=== PATIENT | female | born 1950 | race Caucasian/White ===

== ENCOUNTER 2019-01-26 10:39 | Emergency (ER) | payer MEDICARE, OTHER ==
[~2019-01-26] VITALS: Ht 167.6 cm; Wt 124.7 kg
[~2019-01-26 10:39] MED LIST: AMIT50 PO; AMITRIPTYLINE PO; BACL20 PO; CELE200 PO; FOLI1 PO; GABA300 PO; INTE30I SC; KRILL OIL PO; LOSARTAN POTAS100 MG PO; MODA200 PO; OMEP20ER PO; SIMV10 PO; TECFIDERA240 MG PO; TRAM50 PO; TRAVER2180 PO; VITAMIN E PO; WOMENS MULTI VITAMIN PO
[2019-01-26] MEDS ORDERED: BACI500TO TOP (11:57)
== END 2019-01-26 13:13 | disposition home or self-care (01) ==
LOC: ER 10:39
DX: T23.202A Burn of second degree of left hand, unspecified site, initial encounter (principal); T23.201A Burn of second degree of right hand, unspecified site, initial encounter; T31.22 Burns involving 20-29% of body surface with 20-29% third degree burns; G35 Multiple sclerosis; Z88.0 Allergy status to penicillin; Z88.5 Allergy status to narcotic agent; Z88.7 Allergy status to serum and vaccine; Z88.1 Allergy status to other antibiotic agents; Z79.899 Other long term (current) drug therapy; X15.0XXA Contact with hot stove (kitchen), initial encounter; Y92.009 Unspecified place in unspecified non-institutional (private) residence as the place of occurrence of the external cause
CPT/HCPCS: 99283

== ENCOUNTER 2022-01-28 13:10 | Day surgery (SDC) | payer MEDICARE, OTHER ==
[~2022-01-28 13:10] MED LIST changes: +BACI500TO TOP; +LISI20 PO
== END 2022-01-28 16:42 | disposition home or self-care (01) ==
LOC: ATC 13:10
DX: H53.2 Diplopia (principal); H52.51 Internal ophthalmoplegia (complete) (total); Z99.3 Dependence on wheelchair
CPT/HCPCS: J2930

== ENCOUNTER 2022-01-29 01:14 | Day surgery (SDC) | payer MEDICARE, OTHER | END 2022-01-29 16:46 | disposition home or self-care (01) | LOC: ATC 01:14 | DX: H51.20 Internuclear ophthalmoplegia, unspecified eye (principal); H53.2 Diplopia | CPT/HCPCS: J2930 ==

== ENCOUNTER 2022-01-30 00:10 | Day surgery (SDC) | payer MEDICARE, OTHER | END 2022-01-30 16:40 | disposition home or self-care (01) | LOC: ATC 00:10 | DX: H51.20 Internuclear ophthalmoplegia, unspecified eye (principal); H53.2 Diplopia; Z88.0 Allergy status to penicillin; Z88.1 Allergy status to other antibiotic agents; Z88.7 Allergy status to serum and vaccine; Z88.5 Allergy status to narcotic agent; Z79.899 Other long term (current) drug therapy | CPT/HCPCS: 96365; J2930 ==

== ENCOUNTER 2022-01-31 00:12 | Day surgery (SDC) | payer MEDICARE, OTHER | END 2022-01-31 16:46 | disposition home or self-care (01) | LOC: ATC 00:12 | DX: H51.20 Internuclear ophthalmoplegia, unspecified eye (principal); H53.2 Diplopia; G35 Multiple sclerosis; Z88.0 Allergy status to penicillin; Z88.1 Allergy status to other antibiotic agents; Z88.5 Allergy status to narcotic agent; Z88.7 Allergy status to serum and vaccine; Z88.6 Allergy status to analgesic agent; Z96.652 Presence of left artificial knee joint | CPT/HCPCS: J2930 ==

== ENCOUNTER 2022-02-01 01:45 | Day surgery (SDC) | payer MEDICARE, OTHER | END 2022-02-01 10:30 | disposition home or self-care (01) | LOC: ATC 01:45 | DX: H51.20 Internuclear ophthalmoplegia, unspecified eye (principal); H53.2 Diplopia | CPT/HCPCS: J2930 ==

== ENCOUNTER 2022-02-04 18:18 | Inpatient (IN) | payer MEDICARE, OTHER ==
[~2022-02-04] VITALS: Ht 167.6 cm; Wt 122.9 kg
[~2022-02-04 18:18] MED LIST changes: -AMIT50 PO; +AMITRIPTYLINE100 M2 PO
[2022-02-04 19:12] LABS: BASOPHILS ABSOLUTE AUTO 0.06 K/mm3 (0.00-0.23); BASOPHILS PERCENT AUTO 0 % (0-2); EOSINOPHILS PERCENT AUTO 0 % (0-6); Hematocrit 50.9 % (33.0-51.0); Hemoglobin 16.4 g/dL (11.5-16.0); IMMATURE GRAN PERCENT AUTO 1 % (0-1); LYMPHOCYTES ABSOLUTE AUTO 1.33 K/mm3 (0.84-5.20); LYMPHOCYTES PERCENT AUTO 5 % (21-46); MONOCYTES ABSOLUTE AUTO 2.49 K/mm3 (0.16-1.47); MONOCYTES PERCENT AUTO 9 % (4-13); Mean Corpuscular HGB 30.2 pg (26.0-34.0); Mean Corpuscular HGB Conc 32.2 g/dL (31.5-36.5); Mean Corpuscular Volume 94 fL (80-100); Mean Platelet Volume 10.8 fL (9.1-12.4); NEUTROPHILS ABSOLUTE AUTO 23.73 K/mm3 (1.96-9.15); NEUTROPHILS PERCENT AUTO 85 % (41-73); Platelet Count 320 K/mm3 (150-400); RDW Coefficient Variation 13.4 % (11.7-14.2); RDW Standard Deviation 46.6 fL (35.1-46.3); Red Blood Cell Count 5.43 M/mm3 (3.80-5.20); White Blood Cell Count 27.91 K/mm3 (4.00-11.30)
[2022-02-04 19:28] LABS: Alanine Aminotransfer (ALT/SGP 132 U/L (12-78); Albumin, Blood 2.7 g/dL (3.4-5.0); Albumin/Globulin Ratio 0.6 (0.8-1.8); Alk Phos 77 U/L (50-136); Anion Gap 10 mmol/L (6-16); Aspartate Aminotrans (AST/SGOT 229 U/L (12-37); Bilirubin, Total 1.4 mg/dL (0.1-1.0); Blood Urea Nitrogen 47 mg/dL (8-24); CO2, Blood 25 mmol/L (21-32); Chloride, Blood 107 mmol/L (98-108); Creatinine, Blood 0.89 mg/dL (0.40-1.00); Globulin, Blood 4.7 g/dL (2.2-4.0); Glomerular Filtration Rate >60 (60-); Glucose, Blood 148 mg/dL (70-99); Potassium, Blood 3.7 mmol/L (3.5-5.5); Sodium, Blood 142 mmol/L (136-145); Total Protein, Blood 7.4 g/dL (6.4-8.2)
[2022-02-04 19:54] LABS: CPK Creatine Kinase 4405 U/L (26-193)
[2022-02-04 20:11] LABS: Creatine Kinase MB 67.2 ng/mL (0.0-3.6); Creatine Kinase MB Index 1.5 (0.0-4.0)
[2022-02-04 20:28] LABS: Source, Urine Foley catheter
[2022-02-04 20:37] LABS: Appearance, Urine Clear (Clear); Bilirubin, Urine Neg (Neg); Blood, Urine 4+ (Neg); Color, Urine Amber (P-Yellow); Glucose Qualitative, Urine Neg (Neg); Ketones, Urine 1+ (Neg); Leukocyte Esterase, Urine Neg (Neg); Nitrite, Urine Neg (Neg); Protein, Urine 2+ (Neg); Specific Gravity, Urine 1.025 (1.003-1.022); Urobilinogen, Urine 1+ (Normal)
[2022-02-04 20:48] LABS: Bacteria Few /hpf; Squamous Epithelial Cells Few /hpf (Few)
[2022-02-04 20:50] LABS: Transitional Epithelial Cells Rare /hpf (0-Rare)
[2022-02-04] MEDS ORDERED: MYRBETRIQ50 MG PO (23:02)
--- NOTE | 2022-02-04 23:46 | NUR ---
ADMIT PT ARRIVED TO 303 @2315, 3 PER SLIDE TRANSFER TO BED. DX c RHABDOMYLOSIS, WAS FOUND DOWN @HOME FOR ROUGHLY 24HRS. ORIENTED TO & CALL LIGHT. WCTM.
--- NOTE | 2022-02-05 05:03 | NUR ---
SHIFT SUMMARY AOX4. VSS. ADMITTED LAST NIGHT FOR RHABDOMYLOSIS. REPORTS 8/10 ACHY PAIN ALLOVER BODY, MEDICATED 1X c TYLENOL & PT ABLE TO REST WELL. UNABLE TO RAISE L LEG & HAS N/T SENSATION STATES THIS IS NOT NEW R/T HX MS. BLE EDEMATOUS. UNABLE TO RAISE L ARM, REPORTS THIS IS NEW SINCE FALL, CAN STILL WIGGLE FINGERS ON L HAND & BACKUP OPERATOR. R ARM & HAND IS EDEMATOUS c SCATTERED ABRASIONS & LARGE BLISTERS. SOME BLISTERS ARE LEAKING SEROUS DRAINAGE, CLEANSED, APPLIED NONADHERENT & ABD PAD. PT HAS LARGE WOUND ON BACK OF NECK, CLEANSED & APPLIED NONADHERENT PAD. SKIN TEAR R SCAPULA, CLEANSED, APPLIED NONADHERENT PAD. PICS TAKEN & PLACED IN CHART. MCDONOUGH PATENT & DRAINING CLEAR SHERLYN URINE. PT W/C BOUND @BASELINE & LIVES ALONE, BEDREST @THIS TIME. CALL LIGHT IN REACH. WCTM.
[2022-02-05 05:17] LABS: Hemoglobin 16.1 g/dL (11.5-16.0); Mean Corpuscular HGB 30.4 pg (26.0-34.0); Mean Corpuscular HGB Conc 32.9 g/dL (31.5-36.5); Mean Corpuscular Volume 93 fL (80-100); Mean Platelet Volume 10.7 fL (9.1-12.4); Platelet Count 168 K/mm3 (150-400); RDW Coefficient Variation 13.5 % (11.7-14.2); RDW Standard Deviation 45.9 fL (35.1-46.3)
[2022-02-05 05:36] LABS: Alanine Aminotransfer (ALT/SGP 127 U/L (12-78); Albumin, Blood 2.2 g/dL (3.4-5.0); Albumin/Globulin Ratio 0.6 (0.8-1.8); Alk Phos 65 U/L (50-136); Anion Gap 10 mmol/L (6-16); Aspartate Aminotrans (AST/SGOT 252 U/L (12-37); Bilirubin, Total 1.2 mg/dL (0.1-1.0); Blood Urea Nitrogen 45 mg/dL (8-24); Bun/Creatinine Ratio 57.5 (12.0-20.0); CO2, Blood 25 mmol/L (21-32); Calcium, Blood 8.6 mg/dL (8.5-10.1); Chloride, Blood 111 mmol/L (98-108); Creatinine, Blood 0.78 mg/dL (0.40-1.00); Globulin, Blood 3.9 g/dL (2.2-4.0); Glomerular Filtration Rate >60 (60-); Glucose, Blood 116 mg/dL (70-99); Potassium, Blood 3.7 mmol/L (3.5-5.5); Sodium, Blood 146 mmol/L (136-145); Total Protein, Blood 6.1 g/dL (6.4-8.2)
[2022-02-05 05:51] LABS: BASOPHILS PERCENT MAN 0 % (0-2); EOSINOPHILS ABSOLUTE MAN 0.23 K/mm3 (0.00-0.68); EOSINOPHILS PERCENT MAN 1 % (0-6); LYMPHOCYTES ABSOLUTE MAN 0.71 K/mm3 (0.84-5.20); LYMPHOCYTES PERCENT MAN 3 % (21-46); MONOCYTES ABSOLUTE MAN 2.14 K/mm3 (0.16-1.47); MONOCYTES PERCENT MAN 9 % (4-13); SEG NEUTROPHILS PERCENT MAN 87 % (41-73); TOTAL CELLS COUNTED 100
--- NOTE | 2022-02-05 18:32 | NUR ---
SHIFT SUMMARY: NO ACUTE EVENTS. C/O GENERALIZED PAIN FROM SOFT TISSUE INJURIES; MEDICATED WITH TYLENOL WITH ADEQUATE RELIEF. WOUND CARE CONSULT COMPLETED AND ORDERS PLACED. MCDONOUGH DRAINING ADEQUATE ORANGE URINE. L ARM ALMOST FLACCID IS LLE. ABD U/S DONE, MRI HEAD WILL BE DONE IN A.M. TOLERATING PO INTAKE, DRINKING LOTS OF WATER. SISTER VISITED THIS AFTERNOON.
--- NOTE | 2022-02-06 04:20 | NUR ---
FEVER: PATIENT SCORED A 4 ON VIEWS FOR TACYCARDIA, TEMP. 101.1 AND HIGH RESPIRATIONS. TYLENOL WAS GIVEN WITH POOR EFFECT. TEMP. 101.[address] SEALS WAS NOTIFIED AND REPEAT DOSE OF TYLENOL WAS ORDERED WITH SEPSIS WORK UP.
[2022-02-06 04:41] LABS: Hematocrit 42.1 % (33.0-51.0); Hemoglobin 13.5 g/dL (11.5-16.0); Mean Corpuscular HGB 30.3 pg (26.0-34.0); Mean Corpuscular HGB Conc 32.1 g/dL (31.5-36.5); Mean Corpuscular Volume 95 fL (80-100); Mean Platelet Volume 10.6 fL (9.1-12.4); Platelet Count 222 K/mm3 (150-400); RDW Coefficient Variation 13.8 % (11.7-14.2); RDW Standard Deviation 48.3 fL (35.1-46.3); Red Blood Cell Count 4.45 M/mm3 (3.80-5.20); White Blood Cell Count 23.28 K/mm3 (4.00-11.30)
[2022-02-06 05:18] LABS: Alanine Aminotransfer (ALT/SGP 109 U/L (12-78); Albumin, Blood 1.7 g/dL (3.4-5.0); Albumin/Globulin Ratio 0.4 (0.8-1.8); Alk Phos 65 U/L (50-136); Anion Gap 7 mmol/L (6-16); Aspartate Aminotrans (AST/SGOT 164 U/L (12-37); Blood Urea Nitrogen 28 mg/dL (8-24); Bun/Creatinine Ratio 43.4 (12.0-20.0); CHOL/HDL RATIO 3.1; CO2, Blood 26 mmol/L (21-32); Calcium, Blood 7.7 mg/dL (8.5-10.1); Chloride, Blood 105 mmol/L (98-108); Cholesterol 132 mg/dL (50-200); Creatinine, Blood 0.65 mg/dL (0.40-1.00); Globulin, Blood 3.9 g/dL (2.2-4.0); Glomerular Filtration Rate >60 (60-); Glucose, Blood 145 mg/dL (70-99); HDL Cholesterol 42 mg/dL (>39); LDL/HDL RATIO 1.4; Low Density Lipoprotein Chol 59 mg/dL (0-110); Sodium, Blood 138 mmol/L (136-145); Thyroid Stimulating Hormone 0.778 uIU/mL (0.360-4.800); Total Protein, Blood 5.6 g/dL (6.4-8.2); Triglycerides 154 mg/dL (30-160); Very Low Density Lipoprot Chol 30 mg/dL (6-32)
[2022-02-06 05:48] LABS: CPK Creatine Kinase 2051 U/L (26-193); Creatine Kinase MB 6.4 ng/mL (0.0-3.6); Creatine Kinase MB Index 0.3 (0.0-4.0)
--- NOTE | 2022-02-06 06:11 | NUR ---
SHIFT SUMMARY: RECHECK ON TEMP. AFTER SECOND DOSE OF TYLENOL WAS 101.4. LACTIC ACID WAS 1.5, PROLACTIN WAS 0.35, WBC 23.28, BLOOD CX ARE PENDING. PATIENT WILL HAVE CXR AND MRI TODAY. CEASAR IS PATENT FOR CLEAR SHERLYN URINE, 700 MLS OUT THIS SHIFT.
--- NOTE | 2022-02-06 17:55 | NUR ---
SHIFT SUMMARY: SLIGHTLY FEBRILE AT START OF SHIFT; TYLENOL GIVEN AND IV ABX STARTED. L ARM WEAKNESS SLIGHTLY IMPROVED. MRI HEAD UNABLE TO BE DONE D/T PT'S BODY HABITUS. DRESSING CHANGES DONE. APPEARS VERY FATIGUED. MCDONOUGH DRAINING ORANGE URINE. ON ROOM AIR. WILL BE MOVED TO ROOM WITH A CEILING LIFT AT SHIFT CHANGE.
[2022-02-07 04:47] LABS: Hematocrit 41.1 % (33.0-51.0); Hemoglobin 13.4 g/dL (11.5-16.0); Mean Corpuscular HGB 30.4 pg (26.0-34.0); Mean Corpuscular HGB Conc 32.6 g/dL (31.5-36.5); Mean Corpuscular Volume 93 fL (80-100); Mean Platelet Volume 10.3 fL (9.1-12.4); Platelet Count 240 K/mm3 (150-400); RDW Coefficient Variation 13.8 % (11.7-14.2); RDW Standard Deviation 47.4 fL (35.1-46.3); Red Blood Cell Count 4.41 M/mm3 (3.80-5.20); White Blood Cell Count 16.47 K/mm3 (4.00-11.30)
[2022-02-07 05:14] LABS: Creatine Kinase MB 5.5 ng/mL (0.0-3.6)
[2022-02-07 05:32] LABS: Alanine Aminotransfer (ALT/SGP 119 U/L (12-78); Albumin, Blood 1.8 g/dL (3.4-5.0); Albumin/Globulin Ratio 0.4 (0.8-1.8); Alk Phos 71 U/L (50-136); Anion Gap 5 mmol/L (6-16); Aspartate Aminotrans (AST/SGOT 154 U/L (12-37); Bilirubin, Total 0.9 mg/dL (0.1-1.0); Blood Urea Nitrogen 33 mg/dL (8-24); Bun/Creatinine Ratio 47.6 (12.0-20.0); CO2, Blood 31 mmol/L (21-32); CPK Creatine Kinase 1868 U/L (26-193); Calcium, Blood 8.1 mg/dL (8.5-10.1); Chloride, Blood 103 mmol/L (98-108); Creatine Kinase MB Index 0.3 (0.0-4.0); Creatinine, Blood 0.69 mg/dL (0.40-1.00); Glomerular Filtration Rate >60 (60-); Glucose, Blood 112 mg/dL (70-99); Potassium, Blood 3.8 mmol/L (3.5-5.5); Sodium, Blood 139 mmol/L (136-145); Total Protein, Blood 5.8 g/dL (6.4-8.2)
--- NOTE | 2022-02-07 18:18 | NUR ---
SHIFT SUMMARY THE PATIENT IS ALERT AND ORIENTED X2 THIS SHIFT. PLEASANT AND COOPERATIVE WITH CARE. THE PATIENT HAS BEEN HALLUCINATING THIS SHIFT. MD IS AWARE. FAMILY AT BEDSIDE MOST OF THIS SHIFT. WOUND CARE DONE THIS SHIFT. SPEECH THERAPY WILL BE BY TOMORROW FOR EVAL. PATIENT WORKED WITH PHYSICAL THERAPY AND OCCUPATIONAL THERAPY THIS SHIFT. CALL LIGHT WITHIN REACH. NOTHING FURTHER TO REPORT.
--- NOTE | 2022-02-08 03:53 | NUR ---
Patient alert, actively talking outloud to the wall. She has not slept during this shift. Sleeping meds given per order. Concern raise per daughter. Call light within reach. We will continue to monitor until report given to the oncoming nurse.
[2022-02-08 12:49] LABS: Anion Gap 6 mmol/L (6-16); Blood Urea Nitrogen 13 mg/dL (8-24); Bun/Creatinine Ratio 26.6 (12.0-20.0); CO2, Blood 29 mmol/L (21-32); Chloride, Blood 106 mmol/L (98-108); Creatinine, Blood 0.49 mg/dL (0.40-1.00); Glomerular Filtration Rate >60 (60-); Glucose, Blood 141 mg/dL (70-99); Potassium, Blood 3.6 mmol/L (3.5-5.5); Sodium, Blood 141 mmol/L (136-145)
--- NOTE | 2022-02-08 17:00 | NUR ---
SHIFT SUMMARY THE PATIENT IS A/O X2, PLEASANT AND COOPERATIVE WITH CARE. THE PATIENT IS ON RA. NO TELE. MCDONOUGH DRAINING TO GRAVITY. THE PATIENT HAS BEEN HALLUCINATING THIS SHIFT. THE PATIENT WAS SWITCHED TO A PUREE DIET. THE PATIENT HAS STILL NOT SLEPT IN THE LAST 2 DAYS. SEROQUEL GIVEN THIS SHIFT. THE PATIENT BECAME LESS FIDGETY BUT STILL HAS NOT SLEPT ANY THIS SHIFT. DRESSINGS CHANGED THIS SHIFT. FAMILY AT BEDSIDE. CALL LIGHT WITHIN REACH. BED ALARM ON. BED IN LOWEST POSITION.
[2022-02-09 05:09] LABS: Hematocrit 39.8 % (33.0-51.0); Hemoglobin 12.6 g/dL (11.5-16.0); Mean Corpuscular HGB 30.1 pg (26.0-34.0); Mean Corpuscular HGB Conc 31.7 g/dL (31.5-36.5); Mean Corpuscular Volume 95 fL (80-100); Mean Platelet Volume 10.4 fL (9.1-12.4); Platelet Count 224 K/mm3 (150-400); RDW Standard Deviation 48.7 fL (35.1-46.3); Red Blood Cell Count 4.19 M/mm3 (3.80-5.20); White Blood Cell Count 11.71 K/mm3 (4.00-11.30)
[2022-02-09 05:47] LABS: Anion Gap 9 mmol/L (6-16); Blood Urea Nitrogen 11 mg/dL (8-24); Bun/Creatinine Ratio 21.9 (12.0-20.0); CO2, Blood 25 mmol/L (21-32); Chloride, Blood 106 mmol/L (98-108); Glomerular Filtration Rate >60 (60-); Glucose, Blood 124 mg/dL (70-99); Potassium, Blood 3.8 mmol/L (3.5-5.5); Sodium, Blood 140 mmol/L (136-145)
--- NOTE | 2022-02-09 07:37 | NUR ---
SHIFT SUMMARY PT CONFUSED AND HALLUCINATING ALL SHIFT , SHE DID NOT SLEEP ANY THIS SHIFT AND WAS VERY RESTLESS AND DR. SEALS WAS MADE AWARE AT 0530 AND NO ORDERS WERE RECEIVED, TURNEDPT Q 2 HRS AND FREQUENT ORAL CARE DONE, MCDONOUGH CATHETER P/D SHERLYN URINE, MULTIPLE DRSGS INTACT TO WOUNDS ON BUTTOCK, RT. FOREARM, LT. HEELAND BACK. NECK DRSG HAD LARGE AMT SEROSANGUINOUS DRAINAGE AND WAS CHANGED AT 0605 THIS AM AND PT TOLERATED WELL,LLE RED AND ALL EXTREMITIES KEPT ELEVATED THIS SHIFT, NO ACUTE DISTRESS THIS SHIFT.
--- NOTE | 2022-02-09 17:12 | NUR ---
SHIFT SUMMARY THE PATIENT IS ALERT AND ORIENTED X2 SELF AND FAMILY. THE PATIENT HAS BEEN PLEASANT AND COOPERATIVE WITH REORIENTATION. THE PATIENT CONTINUES TO HALLUCINATE THIS SHIFT. MD AWARE. DRESSINGS CHANGED THIS SHIFT. VERY LITTLE PO INTAKE THIS SHIFT. NEW 22G IV PUT IN LEFT FOREARM THIS SHIFT. FAMILY AT BEDSIDE. BED IN LOWEST POSITION, CALL LIGHT WITHIN REACH.
[2022-02-10 04:55] LABS: Anion Gap 8 mmol/L (6-16); Blood Urea Nitrogen 8 mg/dL (8-24); Bun/Creatinine Ratio 14.5 (12.0-20.0); CO2, Blood 28 mmol/L (21-32); Calcium, Blood 8.1 mg/dL (8.5-10.1); Chloride, Blood 106 mmol/L (98-108); Creatinine, Blood 0.55 mg/dL (0.40-1.00); Glomerular Filtration Rate >60 (60-); Glucose, Blood 105 mg/dL (70-99); Potassium, Blood 3.7 mmol/L (3.5-5.5); Sodium, Blood 142 mmol/L (136-145)
--- NOTE | 2022-02-10 06:23 | NUR ---
SHIFT SUMMARY PT ALERT TO PERSON, CONFUSED AND HALLUCINATING ALL SHIFT, PT DID NOT SLEEP ANY TONIGHT, LUNGS CTA, ABD LARGE AND ROUNDED, NO STOOLS THIS SHIFT, MCDONOUGH PATENT AND DRAINING SHERLYN URINE, PT HAS MULTIPLE WOUNDS CHARTED BUT NECK WOUND AND RT. BUTTOCK DRSGS WERE SATURATED WITH DRAINAGE AT 0340 AND BOTH WERE CHANGED, TURNED AND REPOSITIONED Q 2 HRS AND ORAL CARE DONE. NO ACUTE DISTRESS NOTED.
--- NOTE | 2022-02-10 19:50 | NUR ---
SHIFT NOTE. MS YO WAS VERY CONFUSED TODAY. SHE SEEMED TO BE HALLUCINATING, REACHING OUT FOR OBJECTS WITH HER ARM. ABLE TO FOLLOW SOME SIMPLE INSTRUCTIONS, FOR EXAMPLE, "OPEN YOUR MOUTH", "SUCK ON THE STRAW" TO ENCOURAGE ORAL INTAKE. POOR PO INTAKE, DR GOODRICH AWARE, NS IVF STARTED AND DIETARY CONSULT IN. MS YO HAS APPARANTLY NOT SLEPT FOR DAYS - AROUND 2PM I GAVE HER A ONE TIME DOSE OF IV ATIVAN AND SHE HAS BEEN RESTING SINCE. SHE RESPONDS WHEN WE TURN HER TO REPOSITION HER, BUT HAS BEEN MOSTLY SLEEPING SINCE THE ATIVAN DOSE. FAMILY AT BEDSIDE ALL DAY - HER DAUGHTER ADN THEN HER SISTER ALSO. EXTENSIVE WOUND DRESSING CHANGES AND CARE THIS MORNING. HER DAUGHTER HELD HER ON HER SIDE WHILE TWO NURSES REDRESSED THE WOUNDS. WOUNDS PHOTOGRAPHED TODAY AND PLACED IN THE CHART EXCEPT FOR 2 MEPILEX ON HER LEFT HIP THAT WERE CDI, LEFT UNDISTURBED. MOST EXUDATE FROM THE WOUND BEHIND HER NECK WHICH IS CONSISTANT WITH THE NIGHT REPORT. MCDONOUGH IN PLACE FOR WOUND CARE. UOP SHERLYN AND 375CC IN VOLUME (31CC/HR). TURNED AND REPOSITIONED Q2HRS, BED LOW, CALL LIGHT IN REACH, BED ALARM ON.
[2022-02-11 04:47] LABS: Hematocrit 38.2 % (33.0-51.0); Hemoglobin 11.9 g/dL (11.5-16.0); Mean Corpuscular HGB 29.8 pg (26.0-34.0); Mean Corpuscular HGB Conc 31.2 g/dL (31.5-36.5); Mean Corpuscular Volume 96 fL (80-100); Mean Platelet Volume 9.6 fL (9.1-12.4); Platelet Count 174 K/mm3 (150-400); RDW Coefficient Variation 13.8 % (11.7-14.2); RDW Standard Deviation 48.6 fL (35.1-46.3); White Blood Cell Count 7.35 K/mm3 (4.00-11.30)
[2022-02-11 05:04] LABS: Alanine Aminotransfer (ALT/SGP 67 U/L (12-78); Albumin, Blood 1.7 g/dL (3.4-5.0); Albumin/Globulin Ratio 0.4 (0.8-1.8); Alk Phos 73 U/L (50-136); Anion Gap 6 mmol/L (6-16); Aspartate Aminotrans (AST/SGOT 50 U/L (12-37); Bilirubin, Total 0.6 mg/dL (0.1-1.0); Blood Urea Nitrogen 7 mg/dL (8-24); Bun/Creatinine Ratio 13.9 (12.0-20.0); CO2, Blood 29 mmol/L (21-32); Calcium, Blood 7.6 mg/dL (8.5-10.1); Chloride, Blood 105 mmol/L (98-108); Glomerular Filtration Rate >60 (60-); Glucose, Blood 93 mg/dL (70-99); Potassium, Blood 3.5 mmol/L (3.5-5.5); Sodium, Blood 140 mmol/L (136-145); Total Protein, Blood 5.7 g/dL (6.4-8.2)
--- NOTE | 2022-02-11 05:39 | NUR ---
SHIFT SUMMARY: PT IS A/OX2-3. SHE DOES HAVE SOME INTERMITTENT CONFUSION ON WHERE SHE IS AT, BUT MORE ORIENTED THAN PREVIOUS SHIFTS. SHE DOES HAVE MULTIPLE WOUNDS THAT HAVE NEW DRESSINGS THAT ARE CDI. SHE DID TAKE HER MEDS WHOLE, ONE AT A TIME, AND WITH WATER. NO C/O OF PAIN, N/V, AND SEEMED TO GET SOME REST THIS SHIFT. MCDONOUGH CATH IS PATENT AND OUTPUT IS YELLOW/SHERLYN. FAMILY WILL BE AT BEDSIDE INTERMITTENTLY. WE'LL CONTINUE TO MONITOR THE REMAINER OF THE SHIFT.
--- NOTE | 2022-02-11 14:43 | NUR ---
MS SRINATH IS MUCH MORE TALKATIVE TODAY, SHE IS REACTING WELL WITH GOOD CONVERSATION WITH THE FAMILY AND STAFF. FOLLOWING SIMPLE DIRECTIONS WELL. NO HALLUCINATIONS NOTED. VOICE IS LOW AND A LITTLE MUMBLED, NOT ALWAYS EASY TO UNDERSTAND. SHE ATE 80% OF HER LUNCH, DRANK MOST OF THE ENSURE FROM HER BREAKFAST TRAY. TURNED AND REPOSITIONED. BED LOW, BED ALARM ON, CALL LIGHT IN REACH. HER SISTER IS AT HER BEDSIDE.
--- NOTE | 2022-02-11 15:32 | NUR ---
Spoke with Primary RN Callie and discussed case. Pt showing significant improvement today. Pt more alert today and received sleep after ativan dose. Pt resting in bed with her eyes closed upon arrival. Pt's sister and Pt's sister in law at bedside. Offered therapeutic listening as family express concerns regarding Pt living alone. Validated concerns and continued therapeutic listening. Gentle edcuation on the importance of having multiple plans for the future as disease process takes it's coarse. Offered potential suggestions. Family inquires about VA benefits. Family reports Pt's late was a . Deferred question for caremanager to address. Continued therapeutic listening. Family express appreciation and reports no other concerns at this time. Palliative Care will remain available.
--- NOTE | 2022-02-11 17:17 | NUR ---
SPOKE TO DR TEMPLE - FAMILY HAVE VOICED CONCERNS SEVERAL TIMES TODAY ABOUT THE POTENTIAL FOR PT TO NOT BE ABLE TO SLEEP AGAIN TONIGHT AND FOLLOWING NIGHTS. I CALLED DR TEMPLE TO LET HER KNOW ABOUT THE FAMILY'S CONCERNS. SHE SAID THAT SHE THEY HAD TALKED ABOUT IT EARLIER, AND THAT SHE IS PUTTING IN AN ORDER FOR ATIVAN PRN TO SLEEP. MS YO'S SISTER JUST LEFT FOR THE EVENING SO I CAN'T UPDAYE HER AT THIS TIME.
--- NOTE | 2022-02-11 18:55 | NUR ---
SHIFT NOTE - MS YO CONTINUES TO BE MORE ALERT TODAY THAN YESTERDAY. INTERMITTANT COMPREHENSIVE CONVERSATION MIXED WITH PT SPEAKING INCOHESIVELY AND SEEING HER IN THE ROOM (HE WAS NOT THERE). HER APPETITE IS MUCH IMPROVED. SHE ATE MOST OF THE MECHANICAL SOFT MEAL, BUT NO DESERT/HALF OF ENSURE. MULTIPLE DRESSING CHANGES DONE AND DOCUMENTED UNDER THE WOUND CARE TAB. IMPROVEMENT NOTED TO THE RIGHT ARM WOUND. TURNED AND REPOSITIONED Q2HRS. BED LOW. BED ALARM ON. CALL LIGHT IN REACH.
[2022-02-12 04:52] LABS: Hematocrit 38.1 % (33.0-51.0); Hemoglobin 12.1 g/dL (11.5-16.0); Mean Corpuscular HGB 30.2 pg (26.0-34.0); Mean Corpuscular HGB Conc 31.8 g/dL (31.5-36.5); Mean Corpuscular Volume 95 fL (80-100); Mean Platelet Volume 9.6 fL (9.1-12.4); Platelet Count 204 K/mm3 (150-400); RDW Coefficient Variation 13.9 % (11.7-14.2); RDW Standard Deviation 48.2 fL (35.1-46.3); Red Blood Cell Count 4.01 M/mm3 (3.80-5.20); White Blood Cell Count 8.13 K/mm3 (4.00-11.30)
[2022-02-12 05:11] LABS: Albumin, Blood 1.7 g/dL (3.4-5.0); Anion Gap 5 mmol/L (6-16); Blood Urea Nitrogen 7 mg/dL (8-24); Bun/Creatinine Ratio 13.8 (12.0-20.0); CO2, Blood 31 mmol/L (21-32); CPK Creatine Kinase 181 U/L (26-193); Chloride, Blood 103 mmol/L (98-108); Creatinine, Blood 0.51 mg/dL (0.40-1.00); Glomerular Filtration Rate >60 (60-); Glucose, Blood 117 mg/dL (70-99); Phosphorus, Blood 2.6 mg/dL (2.5-4.9); Potassium, Blood 4.1 mmol/L (3.5-5.5); Sodium, Blood 139 mmol/L (136-145)
[2022-02-12 05:22] LABS: BASOPHILS PERCENT MAN 0 % (0-2); EOSINOPHILS ABSOLUTE MAN 0.08 K/mm3 (0.00-0.68); EOSINOPHILS PERCENT MAN 1 % (0-6); LYMPHOCYTES ABSOLUTE MAN 0.73 K/mm3 (0.84-5.20); LYMPHOCYTES PERCENT MAN 9 % (21-46); METAMYELOCYTE ABSOLUTE MAN 0.08 K/mm3 (0.00-0.00); METAMYELOCYTE PERCENT MAN 1 % (0-0); MONOCYTES ABSOLUTE MAN 0.56 K/mm3 (0.16-1.47); MONOCYTES PERCENT MAN 7 % (4-13); MYELOCYTE ABSOLUTE MAN 0.08 K/mm3 (0.00-0.00); MYELOCYTE PERCENT MAN 1 % (0-0); NEUTROPHILS ABSOLUTE MAN 6.58 K/mm3 (1.96-9.15); SEG NEUTROPHILS PERCENT MAN 81 % (41-73); TOTAL CELLS COUNTED 100
--- NOTE | 2022-02-12 05:55 | NUR ---
PT IS A/OX2. SHE HAD SOME INCOMPREHENSIBLE SPEECH THIS NOC SHIFT. HER MCDONOUGH IS PATENT AND OUTPUT IS MINIMAL. DRESSINGS TO NECK/BACK WERE CHANGED AND ARE CDI. XEROFORM, EXU DRY/ABD AND TAPE FOR THOSE DRESSINGS. SHE DID GET 1MG OF ATIVAN AND HAS BEEN SLEEPING VERY GOOD; FOR REPOSITIONING SHE IS AROUSABLE AND CAN ASSIST MINIMALLY. HER BED IS IN THE LOWEST POSITION AND ALARM IS SET. WE'LL CONTINUE TO MONITOR THE REMAINDER OF THE SHIFT.
--- NOTE | 2022-02-12 10:52 | NUR ---
dr burns to bedside. pt's sister in law here with pt. MS SRINATH IS BRIGHTER TODAY, COHERENT CONVERSATION, ORIENTATED X4. SAID SHE FEELS A LOT BETTER. TALKING ABOUT HER RELATIVES IF ALIVE, BUT OTHERWISE FAR LESS CONFUSED. SPEACH CLEAR. WOUND DRESSINGS REMOVED TO BACK OF NECK, LEFT BACK AND BUTTOCK TO SHOW DR BURNS, ALSO VIEWED PHOTOGRAPHS. BACK OF NECK WOUND IS MORE SWOLLEN AND REDDER AROUND THE WOUND THAN YESTERDAY. REDRESSED WITH XEROFORM/ABD PAD. SURGERY CONSULT ORDERED BY DR BURNS FOR POSSIBLE DEBRIDEMENT OF SACRAL WOUND.
--- NOTE | 2022-02-12 18:49 | NUR ---
SHIFT NOTE MS YO HAS BEEN NOTICABLY MORE COMMUNICATIVE THIS SHIFT. ALERT, SPEACH CLEAR, MOSTLY COMPREHENSIVE AND UNCONFUSED IN HER SPEACH, BUT WITH SOME INTERMTTANT CONFUSION. SEEN BY SURGEON, WOUND NOT SUITABLE FOR DEBRIEDMENT PER MD. SEEN BY WOUND CARE NURSE TODAY AND ORDERS FOR WOUND CARE IN THE CHART. MS YO WORKED WITH OT AND PT TODAY. FAMILY AT BEDSIDE THROUGHOUT A LOT OF THE SHIFT. WOUND TO BACK OF NECK LOOKS MORE SWOLLEN AROUND THE WOUND, REDRESSED TODAY. WOUND TO RIGHT FOREARM DRESSING CHANGED AT 1850 USING THE NEW WOUND CARE ORDERS. BED LOW. CALL LIGHT IN REACH. BED ALARM ON.
--- NOTE | 2022-02-13 06:44 | NUR ---
SHIFT SUMMARY: PT IS A/OX3-4 THIS NOC SHIFT. SHE WAS ABLE TO ANSWER WHO SHE WAS, PLACE, DATE AND TIME. SHE WAS COOPERATIVE WITH ALL CARE. THERE ARE NEW WOUNDCARE ORDERS IN THE ORDERS. THE PT WAS HAVING TROUBLE SLEEPING AND RECEIVED PRN ATIVAN, WHICH RESOLVED THE INSOMNIA. SHE IS SAFELY TAKING MEDICATIONS PO WITH SMALL SIPS OF WATER. NO OTHE ACUTE CHANGES THIS SHIFT. HER BED IS IN THE LOWEST POSITON AND CALL LIGHT IS WITHIN REACH. WE'LL CONTINUE TO MONITOR THE REMAINDER OF THE SHIFT.
--- NOTE | 2022-02-13 19:48 | NUR ---
SHIFT SUMMARY: PT A/O X 4 T/OUT THE DAY. SHE WAS ABLE TO TELL ME THE HER NAME, , DATE, EVENTS WHICH BROUGHT HER TO THE HOSPITAL AND WHERE SHE WAS AT. PT ABLE TO ASSIST WITH ROLL CHANGES. WOUND CARE COMPLETED TO ALL WOUNDS PER ORDERS. PT TOLERATED WELL. SHE WAS ABLE TO ASSIST WITH ROLL CHANGES. WE TX HER TO CHAIR AFTER LUNCH VIA AALIYAH. PT HAS BEEN EATING WELL. WERO MINOR REPORTED SHE SUPERVISED PT AND PT ABLE TO FEED SELF WITHOUT ANY CHOKING EPISODES OR OTHER CONCERNS. PT WAS PLEASANT AND COOPERATIVE WITH ALL CARES TODAY.
--- NOTE | 2022-02-14 00:01 | NUR ---
UP IN RECLINER AT BEDSIDE. REFUSED TO LET STAFF PUT HER TO BED. "IM FINE HERE, IM COMFORTABLE..." ALERT AND ORIENTED. CALL LIGHT IN REACH. CEASAR LE. WILL MONITOR. HOB AT 60 DEGREES OR SO. NO NOTED DISTRESS.
--- NOTE | 2022-02-14 04:26 | NUR ---
FOOD AND BEVERAGE LEAD SUMMARY REFUED TO LET STAFF PUT HER BACK IN BED AT HS FROM RECLINER AT BEDSIDE. STATED SHE WAS COMFORTABLE. HAS BEEN RSTING QUIETLY WITH NO NOTED S/S DISTRESS. CALL LIGHT IN REACH. CEASAR LE. WILL CONTINUE TO MONITOR
[2022-02-14] MEDS ORDERED: Promod946 ML PO (13:28)
[2022-02-14] MEDS ORDERED: HYDCHL25 PO (13:28)
[2022-02-14] MEDS ORDERED: SILVADENE TOP (13:29)
[2022-02-14] MEDS ORDERED: CALCIUM ALGINATE TOP (13:30)
[2022-02-14 14:14] LABS: Influenza A, PCR NEGATIVE (NEGATIVE); Influenza B, PCR NEGATIVE (NEGATIVE); Resp Syncytial Virus, PCR NEGATIVE (NEGATIVE); SARS-Cov-2 (COVID-19) PCR, MMC NEGATIVE (NEGATIVE)
[2022-02-14] MEDS ORDERED: Ativan1 MG PO (15:16)
--- NOTE | 2022-02-14 16:50 | NUR ---
DISCHARGE SUMMARY PATIENT DISCHARGED TO [facility]. REPORT CALLED TO FACILITY AND SPOKE TO RN. ALL QUESTIONS ANSWERED. DISCHARGE PAPERWORK AND ATIVAN HARD SCPRIT SENT WITH PATIENT. PATIENT'S DAUGHTER TOOK ALL PATIENT'S BELONGINGS. PATIENT TRANSPORTED VIA GURNEY TO FACILITY.
== END 2022-02-14 18:00 | DRG 871 ==
LOC: ER 18:18 → MEDS 18:19 → ENPENDDIS 02-14 12:27 → MEDS 02-14 18:00
PROVIDERS: Emergency Medicine; Family Medicine; Internal Medicine; ADMIT Internal Medicine
DX: A41.9 Sepsis, unspecified organism (principal); J18.9 Pneumonia, unspecified organism; G92.8 Other toxic encephalopathy; I21.9 Acute myocardial infarction, unspecified; M62.82 Rhabdomyolysis; Z68.42 Body mass index [BMI] 45.0-49.9, adult; G35 Multiple sclerosis; I11.0 Hypertensive heart disease with heart failure; E66.01 Morbid (severe) obesity due to excess calories; G47.00 Insomnia, unspecified; I10 Essential (primary) hypertension; Z66 Do not resuscitate; Z99.3 Dependence on wheelchair; L89.890 Pressure ulcer of other site, unstageable; Z98.890 Other specified postprocedural states; Z96.652 Presence of left artificial knee joint; Z88.0 Allergy status to penicillin; Z88.1 Allergy status to other antibiotic agents; Z88.5 Allergy status to narcotic agent; Z88.8 Allergy status to other drugs, medicaments and biological substances; Z91.018 Allergy to other foods; Z79.899 Other long term (current) drug therapy; W18.30XA Fall on same level, unspecified, initial encounter
CPT/HCPCS: 0241U; 36415; 51702; 70450; 71045; 72125; 73502; 73560-LT; 73560-RT; 76705; 80048; 80053; 80061; 80069; 81001; 82550; 82553; 83605; 84145; 84443; 85025; 85027; 87040; 90471; 90686; 90714; 92526; 92610; 93005; 93010; 96372; 96374; 97110; 97110-CO; 97110-CQ; 97162; 97166; 97530; 97530-CO; 97530-CQ; 97535; 97535-CO; 99285-25; A9270; G0008; G0378; J0696; J1650; J2060; J3010; J7030; J7120

== ENCOUNTER 2022-02-28 01:50 | Day surgery (SDC) | payer MEDICARE, OTHER ==
[~2022-02-28 01:50] MED LIST changes: +Ativan1 MG PO; +CALCIUM ALGINATE TOP; +HYDCHL25 PO; +MYRBETRIQ50 MG PO; +Promod946 ML PO; +SILVADENE TOP
== END 2022-02-28 23:37 | disposition home or self-care (01) ==
LOC: WOUND 01:50
DX: L89.324 Pressure ulcer of left buttock, stage 4 (principal); L89.890 Pressure ulcer of other site, unstageable; L89.120 Pressure ulcer of left upper back, unstageable; G35 Multiple sclerosis; L89.320 Pressure ulcer of left buttock, unstageable; R77.0 Abnormality of albumin; I73.9 Peripheral vascular disease, unspecified; I87.2 Venous insufficiency (chronic) (peripheral); G81.04 Flaccid hemiplegia affecting left nondominant side; L89.620 Pressure ulcer of left heel, unstageable; Z88.0 Allergy status to penicillin; Z88.1 Allergy status to other antibiotic agents; Z88.8 Allergy status to other drugs, medicaments and biological substances
CPT/HCPCS: A9270; G0463

== ENCOUNTER 2022-03-07 00:20 | Day surgery (SDC) | payer MEDICARE, OTHER | END 2022-03-07 23:17 | disposition home or self-care (01) | LOC: WOUND 00:20 | DX: L89.324 Pressure ulcer of left buttock, stage 4 (principal); L89.620 Pressure ulcer of left heel, unstageable; L89.890 Pressure ulcer of other site, unstageable; L89.113 Pressure ulcer of right upper back, stage 3; L89.120 Pressure ulcer of left upper back, unstageable; G35 Multiple sclerosis; R77.0 Abnormality of albumin; I73.9 Peripheral vascular disease, unspecified; I87.2 Venous insufficiency (chronic) (peripheral); G81.04 Flaccid hemiplegia affecting left nondominant side | CPT/HCPCS: A9270 ==

== ENCOUNTER 2022-03-14 02:29 | Day surgery (SDC) | payer MEDICARE, OTHER | END 2022-03-14 23:23 | disposition home or self-care (01) | LOC: WOUND 02:29 | DX: L89.894 Pressure ulcer of other site, stage 4 (principal); L89.324 Pressure ulcer of left buttock, stage 4; L89.890 Pressure ulcer of other site, unstageable; L89.620 Pressure ulcer of left heel, unstageable; G35 Multiple sclerosis; R77.0 Abnormality of albumin; I73.9 Peripheral vascular disease, unspecified; I87.2 Venous insufficiency (chronic) (peripheral); G81.04 Flaccid hemiplegia affecting left nondominant side ==

== ENCOUNTER 2022-03-21 00:55 | Day surgery (SDC) | payer MEDICARE, OTHER | END 2022-03-21 23:00 | disposition home or self-care (01) | LOC: WOUND 00:55 | DX: L89.324 Pressure ulcer of left buttock, stage 4 (principal); L89.620 Pressure ulcer of left heel, unstageable; L89.894 Pressure ulcer of other site, stage 4; G35 Multiple sclerosis; I87.2 Venous insufficiency (chronic) (peripheral); I73.9 Peripheral vascular disease, unspecified; G81.04 Flaccid hemiplegia affecting left nondominant side | CPT/HCPCS: G0463 ==

== ENCOUNTER 2022-04-18 01:04 | Day surgery (SDC) | payer MEDICARE, OTHER | END 2022-04-18 23:28 | disposition home or self-care (01) | LOC: WOUND 01:04 | DX: L89.324 Pressure ulcer of left buttock, stage 4 (principal); L89.120 Pressure ulcer of left upper back, unstageable; G35 Multiple sclerosis; I73.9 Peripheral vascular disease, unspecified; I87.2 Venous insufficiency (chronic) (peripheral); G81.04 Flaccid hemiplegia affecting left nondominant side; S31.119A Laceration without foreign body of abdominal wall, unspecified quadrant without penetration into peritoneal cavity, initial encounter; S71.012A Laceration without foreign body, left hip, initial encounter; S21.212A Laceration without foreign body of left back wall of thorax without penetration into thoracic cavity, initial encounter; Z91.81 History of falling | CPT/HCPCS: A9270; G0463 ==

== ENCOUNTER 2022-05-23 00:41 | Day surgery (SDC) | payer MEDICARE, OTHER | END 2022-05-23 23:05 | disposition home or self-care (01) | LOC: WOUND 00:41 | DX: L89.324 Pressure ulcer of left buttock, stage 4 (principal); G35 Multiple sclerosis; I73.9 Peripheral vascular disease, unspecified; I87.2 Venous insufficiency (chronic) (peripheral); G81.04 Flaccid hemiplegia affecting left nondominant side; R77.0 Abnormality of albumin; Z86.16 Personal history of COVID-19 | CPT/HCPCS: A9270 ==

== ENCOUNTER 2022-05-26 15:15 | Emergency (ER) | payer MEDICARE, OTHER ==
[~2022-05-26] VITALS: Ht 162.6 cm; Wt 208.7 kg
[2022-05-26 15:44] LABS: BASOPHILS ABSOLUTE AUTO 0.03 K/mm3 (0.00-0.23); BASOPHILS PERCENT AUTO 1 % (0-2); EOSINOPHILS ABSOLUTE AUTO 0.11 K/mm3 (0.00-0.68); EOSINOPHILS PERCENT AUTO 2 % (0-6); Hematocrit 40.9 % (33.0-51.0); Hemoglobin 13.4 g/dL (11.5-16.0); IMMATURE GRAN ABSOLUTE AUTO 0.02 K/mm3 (0.00-0.10); IMMATURE GRAN PERCENT AUTO 0 % (0-1); LYMPHOCYTES ABSOLUTE AUTO 1.47 K/mm3 (0.84-5.20); LYMPHOCYTES PERCENT AUTO 22 % (21-46); MONOCYTES ABSOLUTE AUTO 0.53 K/mm3 (0.16-1.47); MONOCYTES PERCENT AUTO 8 % (4-13); Mean Corpuscular HGB 30.8 pg (26.0-34.0); Mean Corpuscular HGB Conc 32.8 g/dL (31.5-36.5); Mean Corpuscular Volume 94 fL (80-100); Mean Platelet Volume 10.3 fL (9.1-12.4); NEUTROPHILS ABSOLUTE AUTO 4.45 K/mm3 (1.96-9.15); NEUTROPHILS PERCENT AUTO 67 % (41-73); Platelet Count 215 K/mm3 (150-400); RDW Coefficient Variation 12.8 % (11.7-14.2); RDW Standard Deviation 43.8 fL (35.1-46.3); Red Blood Cell Count 4.35 M/mm3 (3.80-5.20); White Blood Cell Count 6.61 K/mm3 (4.00-11.30)
[2022-05-26 15:54] LABS: Albumin, Blood 2.5 g/dL (3.4-5.0); Albumin/Globulin Ratio 0.5 (0.8-1.8); Bilirubin, Total 0.5 mg/dL (0.1-1.0); Bun/Creatinine Ratio 28.3 (12.0-20.0); Calcium, Blood 8.8 mg/dL (8.5-10.1); Creatinine, Blood 0.5 mg/dL (0.40-1.00); Globulin, Blood 4.8 g/dL (2.2-4.0); Potassium, Blood 4.3 mmol/L (3.5-5.5); Total Protein, Blood 7.3 g/dL (6.4-8.2)
[2022-05-26 16:07] LABS: Source, Urine Fem Cath
[2022-05-26 16:36] LABS: Appearance, Urine Hazy (Clear); Bilirubin, Urine Neg (Neg); Blood, Urine 5+ (Neg); Glucose Qualitative, Urine Neg (Neg); Ketones, Urine 1+ (Neg); Leukocyte Esterase, Urine 3+ (Neg); Nitrite, Urine Neg (Neg); Protein, Urine 2+ (Neg); Specific Gravity, Urine 1.015 (1.003-1.022); Urobilinogen, Urine NORM (Normal); pH, Urine 6.5 (5.0-8.0)
[2022-05-26 16:50] LABS: Color, Urine Pale Yellow (P-Yellow)
[2022-05-26 16:54] LABS: Amorphous Light (0-Heavy); Bacteria Many /hpf; Hyaline Casts 0-2 /lpf (0-2); Mucus Mod (0-Heavy); Renal Epithelial Rare /hpf (0-Rare); Squamous Epithelial Cells Rare /hpf (Few); White Blood Cells, Urine 25-50 /hpf (0-5)
[2022-05-26] MEDS ORDERED: AMOCLA875 PO (17:01)
--- NOTE | 2022-05-26 17:30 | NUR ---
Pt in with her daughter and daughter in law. She recently d/c'd from [facility] and is waiting for [facility] for SN for wound vac/wound care and PT for strenghting/exersizes. Pt is unable to ambulate at this time. She accidentally pulled her wound vac tubing off the black foam in the wound bed. Washed with wound cleans then packed R buttock wound with saline moistened gauze, covered with dry abd pad, taped in place. Extra sent with pt. HH to replace tomorrow at intake eval.
== END 2022-05-26 18:00 | disposition home or self-care (01) ==
LOC: ER 15:15
PROVIDERS: Emergency Medicine
DX: G93.40 Encephalopathy, unspecified (principal); N39.0 Urinary tract infection, site not specified; J18.9 Pneumonia, unspecified organism; G35 Multiple sclerosis; I10 Essential (primary) hypertension; Z88.0 Allergy status to penicillin; Z88.1 Allergy status to other antibiotic agents; Z88.5 Allergy status to narcotic agent; Z88.8 Allergy status to other drugs, medicaments and biological substances; Z79.899 Other long term (current) drug therapy; Z96.652 Presence of left artificial knee joint
CPT/HCPCS: 51702; 71045; 80053; 81001; 85025; J0696; J7030

== ENCOUNTER 2022-06-16 07:13 | Day surgery (SDC) | payer MEDICARE, OTHER ==
[~2022-06-16 07:13] MED LIST changes: +AMOCLA875 PO
== END 2022-06-16 23:58 | disposition home or self-care (01) ==
LOC: WOUND 07:13
DX: L89.324 Pressure ulcer of left buttock, stage 4 (principal); G35 Multiple sclerosis; I87.2 Venous insufficiency (chronic) (peripheral); G81.04 Flaccid hemiplegia affecting left nondominant side; L89.620 Pressure ulcer of left heel, unstageable; R77.0 Abnormality of albumin
CPT/HCPCS: A9270

== ENCOUNTER 2022-06-18 12:42 | Observation (INO) | payer MEDICARE, OTHER ==
[~2022-06-18] VITALS: Ht 162.6 cm; Wt 100.1 kg
[2022-06-18 15:08] LABS: BASOPHILS ABSOLUTE AUTO 0.06 K/mm3 (0.00-0.23); BASOPHILS PERCENT AUTO 1 % (0-2); EOSINOPHILS ABSOLUTE AUTO 0.49 K/mm3 (0.00-0.68); EOSINOPHILS PERCENT AUTO 4 % (0-6); Hematocrit 33.8 % (33.0-51.0); Hemoglobin 10.9 g/dL (11.5-16.0); IMMATURE GRAN ABSOLUTE AUTO 0.11 K/mm3 (0.00-0.10); IMMATURE GRAN PERCENT AUTO 1 % (0-1); LYMPHOCYTES ABSOLUTE AUTO 1.52 K/mm3 (0.84-5.20); LYMPHOCYTES PERCENT AUTO 13 % (21-46); MONOCYTES ABSOLUTE AUTO 0.97 K/mm3 (0.16-1.47); MONOCYTES PERCENT AUTO 9 % (4-13); Mean Corpuscular HGB 30.2 pg (26.0-34.0); Mean Corpuscular HGB Conc 32.2 g/dL (31.5-36.5); Mean Corpuscular Volume 94 fL (80-100); Mean Platelet Volume 9.8 fL (9.1-12.4); NEUTROPHILS ABSOLUTE AUTO 8.17 K/mm3 (1.96-9.15); NEUTROPHILS PERCENT AUTO 72 % (41-73); Platelet Count 374 K/mm3 (150-400); RDW Coefficient Variation 12.9 % (11.7-14.2); RDW Standard Deviation 44.2 fL (35.1-46.3); Red Blood Cell Count 3.61 M/mm3 (3.80-5.20); White Blood Cell Count 11.32 K/mm3 (4.00-11.30)
[2022-06-18 15:24] LABS: Influenza A, PCR NEGATIVE (NEGATIVE); Influenza B, PCR NEGATIVE (NEGATIVE); Resp Syncytial Virus, PCR NEGATIVE (NEGATIVE); SARS-Cov-2 (COVID-19) PCR, MMC NEGATIVE (NEGATIVE)
[2022-06-18 15:25] LABS: Albumin/Globulin Ratio 0.4 (0.8-1.8); Bilirubin, Total 0.7 mg/dL (0.1-1.0); Bun/Creatinine Ratio 26.5 (12.0-20.0); Calcium, Blood 8.5 mg/dL (8.5-10.1); Creatinine, Blood 0.49 mg/dL (0.40-1.00); Potassium, Blood 3.7 mmol/L (3.5-5.5)
[2022-06-18 20:22] LABS: Source, Urine Foley catheter
[2022-06-18 20:24] LABS: Bilirubin, Urine Neg (Neg); Blood, Urine 2+ (Neg); Glucose Qualitative, Urine Neg (Neg); Ketones, Urine Neg (Neg); Leukocyte Esterase, Urine 3+ (Neg); Nitrite, Urine Pos (Neg); Protein, Urine 2+ (Neg); Urobilinogen, Urine 1+ (Normal)
[2022-06-18 20:29] LABS: Appearance, Urine Hazy (Clear); Color, Urine Yellow (P-Yellow)
[2022-06-18 20:32] LABS: Bacteria Many /hpf; Squamous Epithelial Cells Not Seen /hpf (Few); White Blood Cells, Urine TNTC /hpf (0-5)
[2022-06-18] MEDS ORDERED: AMITRIPTYLINE100 M2 PO (21:47)
[2022-06-18 22:44] LABS: Source, Urine Foley catheter
[2022-06-18 22:47] LABS: Bilirubin, Urine Neg (Neg); Blood, Urine 3+ (Neg); Glucose Qualitative, Urine Neg (Neg); Ketones, Urine Neg (Neg); Leukocyte Esterase, Urine 3+ (Neg); Nitrite, Urine Pos (Neg); Protein, Urine 2+ (Neg); Urobilinogen, Urine 2+ (Normal)
[2022-06-18 22:54] LABS: Appearance, Urine Cloudy (Clear); Color, Urine Yellow (P-Yellow)
[2022-06-18 22:56] LABS: Amorphous Light (0-Heavy); Bacteria Many /hpf; Red Blood Cells, Urine 0-2 /hpf (0-2); Squamous Epithelial Cells Not Seen /hpf (Few); White Blood Cells, Urine TNTC /hpf (0-5); Yeast/Fungi Urine Many /hpf
[2022-06-19 04:41] LABS: BASOPHILS ABSOLUTE AUTO 0.06 K/mm3 (0.00-0.23); BASOPHILS PERCENT AUTO 1 % (0-2); EOSINOPHILS ABSOLUTE AUTO 0.82 K/mm3 (0.00-0.68); EOSINOPHILS PERCENT AUTO 8 % (0-6); Hematocrit 35.2 % (33.0-51.0); Hemoglobin 10.9 g/dL (11.5-16.0); IMMATURE GRAN ABSOLUTE AUTO 0.06 K/mm3 (0.00-0.10); IMMATURE GRAN PERCENT AUTO 1 % (0-1); LYMPHOCYTES ABSOLUTE AUTO 1.17 K/mm3 (0.84-5.20); LYMPHOCYTES PERCENT AUTO 12 % (21-46); MONOCYTES ABSOLUTE AUTO 0.87 K/mm3 (0.16-1.47); MONOCYTES PERCENT AUTO 9 % (4-13); Mean Corpuscular HGB 29.5 pg (26.0-34.0); Mean Corpuscular Volume 95 fL (80-100); Mean Platelet Volume 9.4 fL (9.1-12.4); NEUTROPHILS ABSOLUTE AUTO 6.82 K/mm3 (1.96-9.15); NEUTROPHILS PERCENT AUTO 70 % (41-73); Platelet Count 345 K/mm3 (150-400); RDW Coefficient Variation 12.9 % (11.7-14.2); RDW Standard Deviation 44.7 fL (35.1-46.3)
[2022-06-19 05:05] LABS: Albumin/Globulin Ratio 0.4 (0.8-1.8); Bilirubin, Total 0.4 mg/dL (0.1-1.0); Bun/Creatinine Ratio 28.1 (12.0-20.0); Calcium, Blood 8.3 mg/dL (8.5-10.1); Creatinine, Blood 0.5 mg/dL (0.40-1.00); Globulin, Blood 4.8 g/dL (2.2-4.0); Potassium, Blood 3.5 mmol/L (3.5-5.5); Total Protein, Blood 6.8 g/dL (6.4-8.2)
--- NOTE | 2022-06-19 05:14 | NUR ---
SHIFT SUMMARY PT NEW ED ADMIT THIS EVENING. PT IS BEDBOUND AT BASELINE, LIFT FOR OOB. REMAINED IN BED THIS SHIFT. HX OF MS. LEFT SIDE MOST AFFECTED, MOSTLY FLACCID. EDEMA TO BLE'S, MORE SO IN LEFT THAN RIGHT. PT CAME IN WITH CHRONIC MCDONOUGH AND WOUND VAC IN PLACE. WOUND VAC TO LEFT BUTTOCKS WOUND. PT REPORTED THAT WOUND VAC HAD BEEN CHANGED ON THURSDAY AT THE WOUND CLINIC. SHE STATES THAT SHE GETS IT CHANGED 3 TIMES A WEEK. DRESSING CHANGED AND HOSPITAL WOUND VAC PLACED. PICTURES OF WOUND PLACED IN CHART. MCDONOUGH CATHETER CHANGED WELL. WHEN REMOVING HOME CATHETER [place] AREA WAS CLEANED WELL. THERE WAS A LOT OF BROWN/MILIAN MILKY DISCHARGE THAT WAS CLEANED BEFORE PLACING NEW CATHETER. URINE SPECIMEN SENT TO LAB WITH INSERTION. PT PLEASANT AND COOPERATIVE. SLEPT OFF AND ON THROUGH THE NIGHT ONCE LEFT TO REST. ON 2 L VIA NC. CONTINUOUS OXIMETRY PLACED BY RT. VITAL SIGNS STABLE. WILL CONTINUE TO MONITOR.
[2022-06-19] MEDS ORDERED: FURO40 PO (11:03)
[2022-06-19] MEDS ORDERED: POTA10T PO (11:03)
--- NOTE | 2022-06-19 16:37 | NUR ---
Patient being transfered/discharged to another facility upon arrival to perform echo.
== END 2022-06-19 16:37 | disposition home or self-care (01) ==
LOC: ER 12:42 → ERHOLD 12:43 → MEDS 21:21
PROVIDERS: Emergency Medicine; Family Medicine; Internal Medicine; ADMIT Hospitalist
DX: A41.9 Sepsis, unspecified organism (principal); I10 Essential (primary) hypertension; R79.89 Other specified abnormal findings of blood chemistry; E66.9 Obesity, unspecified; G35 Multiple sclerosis; L89.159 Pressure ulcer of sacral region, unspecified stage; Z20.822 Contact with and (suspected) exposure to COVID-19; Z66 Do not resuscitate; Z88.6 Allergy status to analgesic agent; Z88.1 Allergy status to other antibiotic agents; Z88.5 Allergy status to narcotic agent; Z88.0 Allergy status to penicillin; Z88.7 Allergy status to serum and vaccine; Z96.652 Presence of left artificial knee joint; Z68.41 Body mass index [BMI] 40.0-44.9, adult
CPT/HCPCS: 0241U; 36415; 71045; 80053; 81001; 83880; 84145; 84484; 85025; 85379; 87077; 87086; 87186; 93005; 93010; 94761; 96372; 96374; 96375; 96376; 99285-25; G0378; J0696; J1650; J1940

== ENCOUNTER → 2022-07-10 | Outpatient (CLI) | payer MEDICARE, OTHER ==
[~2022-07-10] MED LIST changes: +FURO40 PO; +POTA10T PO
== END | disposition home or self-care (01) ==
LOC: LAB SHORT 08:17 → PLD 08:17
DX: D03.59 Melanoma in situ of other part of trunk (principal)
CPT/HCPCS: 88305

== ENCOUNTER 2022-07-14 03:43 | Day surgery (SDC) | payer MEDICARE, OTHER | END 2022-07-14 23:14 | disposition home or self-care (01) | LOC: WOUND 03:43 | DX: L89.324 Pressure ulcer of left buttock, stage 4 (principal); L89.95 Pressure ulcer of unspecified site, unstageable; L89.620 Pressure ulcer of left heel, unstageable; G35 Multiple sclerosis; R77.0 Abnormality of albumin; I73.9 Peripheral vascular disease, unspecified; I87.2 Venous insufficiency (chronic) (peripheral); G81.04 Flaccid hemiplegia affecting left nondominant side | CPT/HCPCS: A9270 ==

== ENCOUNTER 2022-08-12 01:57 | Day surgery (SDC) | payer MEDICARE, OTHER | END 2022-08-12 23:16 | disposition home or self-care (01) | LOC: WOUND 01:57 | DX: L89.324 Pressure ulcer of left buttock, stage 4 (principal); G35 Multiple sclerosis; R77.0 Abnormality of albumin; I73.9 Peripheral vascular disease, unspecified; I87.2 Venous insufficiency (chronic) (peripheral); G81.04 Flaccid hemiplegia affecting left nondominant side; M62.82 Rhabdomyolysis | CPT/HCPCS: A9270 ==

== ENCOUNTER 2022-09-10 04:10 | Day surgery (SDC) | payer MEDICARE, OTHER | END 2022-09-10 22:56 | disposition home or self-care (01) | LOC: WOUND 04:10 | DX: L89.324 Pressure ulcer of left buttock, stage 4 (principal); G35 Multiple sclerosis; R77.0 Abnormality of albumin; I73.9 Peripheral vascular disease, unspecified; I87.2 Venous insufficiency (chronic) (peripheral); G81.04 Flaccid hemiplegia affecting left nondominant side; M62.82 Rhabdomyolysis | CPT/HCPCS: A9270 ==

== ENCOUNTER 2022-10-10 01:10 | Day surgery (SDC) | payer MEDICARE, OTHER | END 2022-10-10 23:24 | disposition home or self-care (01) | LOC: WOUND 01:10 | DX: L89.324 Pressure ulcer of left buttock, stage 4 (principal); G35 Multiple sclerosis; R77.0 Abnormality of albumin; I73.9 Peripheral vascular disease, unspecified; G81.04 Flaccid hemiplegia affecting left nondominant side; M62.82 Rhabdomyolysis | CPT/HCPCS: A9270 ==

== ENCOUNTER → 2022-10-15 | Outpatient (CLI) | payer MEDICARE, OTHER ==
[2022-10-15 11:33] LABS: BASOPHILS ABSOLUTE AUTO 0.05 K/mm3 (0.00-0.23); BASOPHILS PERCENT AUTO 1 % (0-2); EOSINOPHILS ABSOLUTE AUTO 0.76 K/mm3 (0.00-0.68); EOSINOPHILS PERCENT AUTO 13 % (0-6); Hemoglobin 12.5 g/dL (11.5-16.0); IMMATURE GRAN ABSOLUTE AUTO 0.01 K/mm3 (0.00-0.10); IMMATURE GRAN PERCENT AUTO 0 % (0-1); LYMPHOCYTES ABSOLUTE AUTO 1.89 K/mm3 (0.84-5.20); LYMPHOCYTES PERCENT AUTO 32 % (21-46); MONOCYTES ABSOLUTE AUTO 0.55 K/mm3 (0.16-1.47); MONOCYTES PERCENT AUTO 9 % (4-13); Mean Corpuscular HGB Conc 31.3 g/dL (31.5-36.5); Mean Corpuscular Volume 93 fL (80-100); Mean Platelet Volume 10.1 fL (9.1-12.4); NEUTROPHILS ABSOLUTE AUTO 2.69 K/mm3 (1.96-9.15); NEUTROPHILS PERCENT AUTO 45 % (41-73); Platelet Count 235 K/mm3 (150-400); RDW Coefficient Variation 13.3 % (11.7-14.2); RDW Standard Deviation 45.2 fL (35.1-46.3); Red Blood Cell Count 4.31 M/mm3 (3.80-5.20); White Blood Cell Count 5.95 K/mm3 (4.00-11.30)
[2022-10-15 11:48] LABS: Alanine Aminotransfer (ALT/SGP 31 U/L (12-78); Albumin, Blood 2.8 g/dL (3.4-5.0); Albumin/Globulin Ratio 0.6 (0.8-1.8); Alk Phos 59 U/L (50-136); Anion Gap 3 mmol/L (6-16); Aspartate Aminotrans (AST/SGOT 25 U/L (12-37); Bilirubin, Total 0.3 mg/dL (0.1-1.0); Blood Urea Nitrogen 17 mg/dL (8-24); Bun/Creatinine Ratio 27.2 (12.0-20.0); CHOL/HDL RATIO 3.3; CO2, Blood 32 mmol/L (21-32); Calcium, Blood 9.1 mg/dL (8.5-10.1); Chloride, Blood 105 mmol/L (98-108); Cholesterol 177 mg/dL (50-200); Creatinine, Blood 0.63 mg/dL (0.40-1.00); Ferritin, Serum 40 ng/mL (8-252); Globulin, Blood 4.9 g/dL (2.2-4.0); Glomerular Filtration Rate 94 (60-); Glucose, Blood 106 mg/dL (70-99); HDL Cholesterol 54 mg/dL (>39); Iron Serum 47 ug/dL (50-170); LDL/HDL RATIO 1.8; Low Density Lipoprotein Chol 97 mg/dL (0-110); Percent Saturation 18.7 % (15.0-50.0); Potassium, Blood 4.1 mmol/L (3.5-5.5); Sodium, Blood 140 mmol/L (136-145); Total Iron Binding Capacity 252 ug/dL (250-450); Total Protein, Blood 7.7 g/dL (6.4-8.2); Triglycerides 128 mg/dL (30-160); Very Low Density Lipoprot Chol 25 mg/dL (6-32)
== END | disposition home or self-care (01) ==
LOC: LAB SHORT 09:45 → LAB 09:45
PROVIDERS: Physician Assistant
DX: E61.1 Iron deficiency (principal); E66.9 Obesity, unspecified; R53.82 Chronic fatigue, unspecified
CPT/HCPCS: 80053; 80061; 82728; 83036; 83540; 83550; 84443; 85025

== ENCOUNTER 2022-11-05 06:02 | Day surgery (SDC) | payer MEDICARE, OTHER | END 2022-11-05 23:06 | disposition home or self-care (01) | LOC: WOUND 06:02 | DX: L89.324 Pressure ulcer of left buttock, stage 4 (principal); G35 Multiple sclerosis; R77.0 Abnormality of albumin; I73.9 Peripheral vascular disease, unspecified; I87.2 Venous insufficiency (chronic) (peripheral); G81.04 Flaccid hemiplegia affecting left nondominant side; M62.82 Rhabdomyolysis | CPT/HCPCS: A9270; G0463 ==

== ENCOUNTER 2022-11-28 11:43 | Emergency (ER) | payer MEDICARE, OTHER ==
[~2022-11-28] VITALS: Ht 165.1 cm; Wt 110.2 kg
[2022-11-28 12:23] LABS: BASOPHILS ABSOLUTE AUTO 0.04 K/mm3 (0.00-0.23); BASOPHILS PERCENT AUTO 0 % (0-2); EOSINOPHILS ABSOLUTE AUTO 0.36 K/mm3 (0.00-0.68); EOSINOPHILS PERCENT AUTO 3 % (0-6); Hematocrit 37.2 % (33.0-51.0); IMMATURE GRAN ABSOLUTE AUTO 0.08 K/mm3 (0.00-0.10); IMMATURE GRAN PERCENT AUTO 1 % (0-1); LYMPHOCYTES ABSOLUTE AUTO 2.03 K/mm3 (0.84-5.20); LYMPHOCYTES PERCENT AUTO 15 % (21-46); MONOCYTES ABSOLUTE AUTO 1.29 K/mm3 (0.16-1.47); MONOCYTES PERCENT AUTO 10 % (4-13); Mean Corpuscular HGB 29.8 pg (26.0-34.0); Mean Corpuscular HGB Conc 32.3 g/dL (31.5-36.5); Mean Corpuscular Volume 92 fL (80-100); Mean Platelet Volume 9.9 fL (9.1-12.4); NEUTROPHILS ABSOLUTE AUTO 9.67 K/mm3 (1.96-9.15); NEUTROPHILS PERCENT AUTO 72 % (41-73); Platelet Count 226 K/mm3 (150-400); RDW Coefficient Variation 13.4 % (11.7-14.2); RDW Standard Deviation 46.2 fL (35.1-46.3); Red Blood Cell Count 4.03 M/mm3 (3.80-5.20); White Blood Cell Count 13.47 K/mm3 (4.00-11.30)
[2022-11-28 12:36] LABS: Albumin, Blood 2.4 g/dL (3.4-5.0); Albumin/Globulin Ratio 0.5 (0.8-1.8); Bilirubin, Total 0.5 mg/dL (0.1-1.0); Bun/Creatinine Ratio 26.6 (12.0-20.0); Calcium, Blood 8.7 mg/dL (8.5-10.1); Creatinine, Blood 0.64 mg/dL (0.40-1.00); Globulin, Blood 5.2 g/dL (2.2-4.0); Potassium, Blood 3.3 mmol/L (3.5-5.5); Total Protein, Blood 7.6 g/dL (6.4-8.2)
[2022-11-28] MEDS ORDERED: CEPH500 PO (14:13)
== END 2022-11-28 15:09 | disposition home or self-care (01) ==
LOC: ER 11:43
PROVIDERS: Emergency Medicine
DX: L03.116 Cellulitis of left lower limb (principal); I10 Essential (primary) hypertension; Z88.0 Allergy status to penicillin; Z88.1 Allergy status to other antibiotic agents; Z88.5 Allergy status to narcotic agent; Z88.7 Allergy status to serum and vaccine; Z88.6 Allergy status to analgesic agent; Z79.899 Other long term (current) drug therapy
CPT/HCPCS: 36415; 80053; 83605; 85025; 99283

== ENCOUNTER 2022-12-10 04:13 | Day surgery (SDC) | payer MEDICARE, OTHER ==
[~2022-12-10 04:13] MED LIST changes: +CEPH500 PO
== END 2022-12-10 23:09 | disposition home or self-care (01) ==
LOC: WOUND 04:13
DX: L89.324 Pressure ulcer of left buttock, stage 4 (principal); G35 Multiple sclerosis; R77.0 Abnormality of albumin; I73.9 Peripheral vascular disease, unspecified; I87.2 Venous insufficiency (chronic) (peripheral); G81.04 Flaccid hemiplegia affecting left nondominant side; M62.82 Rhabdomyolysis
CPT/HCPCS: G0463

== ENCOUNTER 2022-12-22 01:16 | Day surgery (SDC) | payer MEDICARE, OTHER | END 2022-12-22 23:01 | disposition home or self-care (01) | LOC: WOUND 01:16 | DX: L89.324 Pressure ulcer of left buttock, stage 4 (principal); G35 Multiple sclerosis; R77.0 Abnormality of albumin; I73.9 Peripheral vascular disease, unspecified; I87.2 Venous insufficiency (chronic) (peripheral); G81.04 Flaccid hemiplegia affecting left nondominant side; M62.82 Rhabdomyolysis | CPT/HCPCS: A9270; G0463 ==

== ENCOUNTER 2022-12-28 12:11 | Inpatient (IN) | payer MEDICARE, OTHER ==
[~2022-12-28] VITALS: Ht 165.1 cm; Wt 110.9 kg
[2022-12-28] MEDS ORDERED: HYDROXYZINE PAM25 MG PO (12:56)
[2022-12-28] MEDS ORDERED: ZOCOR20 MG PO (12:57)
[2022-12-28] MEDS ORDERED: BACL20 PO (12:58)
[2022-12-28] MEDS ORDERED: VITAMIN D31000 UNI1 PO (12:58)
[2022-12-28] MEDS ORDERED: FISH OIL 1,2001 EAC4 PO (12:59)
[2022-12-28 13:00] LABS: BASOPHILS ABSOLUTE AUTO 0.05 K/mm3 (0.00-0.23); BASOPHILS PERCENT AUTO 0 % (0-2); EOSINOPHILS PERCENT AUTO 1 % (0-6); Hematocrit 39.4 % (33.0-51.0); IMMATURE GRAN ABSOLUTE AUTO 0.09 K/mm3 (0.00-0.10); IMMATURE GRAN PERCENT AUTO 1 % (0-1); LYMPHOCYTES ABSOLUTE AUTO 1.67 K/mm3 (0.84-5.20); LYMPHOCYTES PERCENT AUTO 10 % (21-46); MONOCYTES ABSOLUTE AUTO 1.34 K/mm3 (0.16-1.47); MONOCYTES PERCENT AUTO 8 % (4-13); Mean Corpuscular HGB 30.2 pg (26.0-34.0); Mean Corpuscular Volume 92 fL (80-100); Mean Platelet Volume 9.9 fL (9.1-12.4); NEUTROPHILS ABSOLUTE AUTO 13.24 K/mm3 (1.96-9.15); NEUTROPHILS PERCENT AUTO 80 % (41-73); Platelet Count 254 K/mm3 (150-400); RDW Coefficient Variation 14.3 % (11.7-14.2); RDW Standard Deviation 48.1 fL (35.1-46.3); White Blood Cell Count 16.49 K/mm3 (4.00-11.30)
[2022-12-28 14:59] LABS: Albumin, Blood 2.5 g/dL (3.4-5.0); Albumin/Globulin Ratio 0.5 (0.8-1.8); Bilirubin, Total 0.4 mg/dL (0.1-1.0); Bun/Creatinine Ratio 21.6 (12.0-20.0); Calcium, Blood 7.9 mg/dL (8.5-10.1); Creatinine, Blood 0.6 mg/dL (0.40-1.00); Potassium, Blood 4.3 mmol/L (3.5-5.5); Total Protein, Blood 7.5 g/dL (6.4-8.2)
[2022-12-28 16:11] LABS: Source, Urine Voided
[2022-12-28 16:18] LABS: Appearance, Urine Cloudy (Clear); Bilirubin, Urine Neg (Neg); Blood, Urine 3+ (Neg); Color, Urine Yellow (P-Yellow); Glucose Qualitative, Urine Neg (Neg); Ketones, Urine Neg (Neg); Leukocyte Esterase, Urine 2+ (Neg); Nitrite, Urine Neg (Neg); Protein, Urine 3+ (Neg); Specific Gravity, Urine 1.015 (1.003-1.022); Urobilinogen, Urine NORM (Normal)
[2022-12-28 17:24] LABS: Amorphous Light (0-Heavy); Bacteria Mod /hpf; Squamous Epithelial Cells Mod /hpf (Few)
[2022-12-28 17:25] LABS: Hyaline Casts 0-2 /lpf (0-2)
--- NOTE | 2022-12-28 18:50 | NUR ---
PATIENT ARRIVED TO UNIT, TRANSFERRED VIA SLIDER SHEET TO BED. VSS ON RA. WOUND TO LEFT GLUTE DRESSED IN MEPILEX, REMOVED AND REPLACED TO ASSESS WOUND. NO DRAINAGE NOTED AT THIS TIME, RED AROUND THE EDGES AND VERY DEEP. EXCORIATION TO COCCYX T/O. ANOTHER MEPILEX PLACED. LEFT SIDE WEAKNESS D/T MS, PER PATIENT. ORIENTED TO ROOM AND CALL LIGHT. DR CALVERT CONSULTED, PER ED PHYSICIAN REQUEST. WILL REPORT TO ONCOMING RN.
[2022-12-29 03:52] LABS: BASOPHILS ABSOLUTE AUTO 0.04 K/mm3 (0.00-0.23); BASOPHILS PERCENT AUTO 0 % (0-2); EOSINOPHILS ABSOLUTE AUTO 0.13 K/mm3 (0.00-0.68); EOSINOPHILS PERCENT AUTO 1 % (0-6); Hematocrit 34.9 % (33.0-51.0); IMMATURE GRAN ABSOLUTE AUTO 0.03 K/mm3 (0.00-0.10); IMMATURE GRAN PERCENT AUTO 0 % (0-1); LYMPHOCYTES ABSOLUTE AUTO 1.81 K/mm3 (0.84-5.20); LYMPHOCYTES PERCENT AUTO 17 % (21-46); MONOCYTES ABSOLUTE AUTO 1.27 K/mm3 (0.16-1.47); MONOCYTES PERCENT AUTO 12 % (4-13); Mean Corpuscular HGB 29.7 pg (26.0-34.0); Mean Corpuscular HGB Conc 31.5 g/dL (31.5-36.5); Mean Corpuscular Volume 94 fL (80-100); NEUTROPHILS PERCENT AUTO 69 % (41-73); Platelet Count 209 K/mm3 (150-400); RDW Coefficient Variation 14.3 % (11.7-14.2); RDW Standard Deviation 49.3 fL (35.1-46.3); White Blood Cell Count 10.58 K/mm3 (4.00-11.30)
[2022-12-29 04:13] LABS: Albumin, Blood 2.2 g/dL (3.4-5.0); Albumin/Globulin Ratio 0.5 (0.8-1.8); Bilirubin, Total 0.8 mg/dL (0.1-1.0); Bun/Creatinine Ratio 23.6 (12.0-20.0); Calcium, Blood 8.3 mg/dL (8.5-10.1); Creatinine, Blood 0.64 mg/dL (0.40-1.00); Globulin, Blood 4.6 g/dL (2.2-4.0); Potassium, Blood 3.4 mmol/L (3.5-5.5); Total Protein, Blood 6.8 g/dL (6.4-8.2)
--- NOTE | 2022-12-29 06:06 | NUR ---
Patient slept well overnight, tylenol given x1 for headache. Wound covered with mepilex. Abx started. Miller cather in place and WNL. Patient NPO and maint. fluids started. SPO2 d/c at start of shift, sats remain above 92%. No questions or concerns at this time.
--- NOTE | 2022-12-29 16:04 | NUR ---
WOUND CARE PT IS A MUTUAL PT OF AND FAMILIAR TO THIS RN. UNABLE TO OBTAIN PICTURE TODAY D/T CAMERA MALFUNCTION. WOUND MEASURES 10x1.5x3.2. MAXWELL-WOUND IS DENUDED. SMALL TUNNEL AT WOUND BASE BUT UNABLE TO MEASURE D/T ANGLE. WOUND CLEANSED WITH NS. IODOFORM TO TUNNEL, CALCIUM ALGINATE TO WOUND BED. NICKEL THICK BARRIER CREAM TO BL GLUT. ABD PLACED OVER WOUND AND SECURED WITH BRIEF TO GIVE SKIN A BREAK FROM ADHESIVE. PT TOLERATED WELL. ORDERS UPDATED IN [employer]
--- NOTE | 2022-12-29 18:00 | NUR ---
SHIFT SUMMARY PATIENT ALERT AND ORIENTED. HX MS AND LEFT SIDE WEAKNESS. CHRONIC TUNNELING WOUND TO LEFT BUTTOCK. DR VAELNTIN CONSULTED AND NO NEED FOR OR. CONSULT PLACED FOR INPATIENT WOUND RN. WOUND CULTURE SENT TODAY. PATIENT TOLERATING REGULAR DIET AND LIQUIDS. CHRONIC INDWELLING CATHETER PATENT. Q2 HR TURNS. ATTENDS CHANGED NEEDED. ROUTINE IV ABX. DRESSING TO WOUND CHANGED THIS SHIFT BY WOUND RN.
--- NOTE | 2022-12-29 23:46 | NUR ---
PT REQUESTING HER PM HOME MEDS FOLLOWS: LISINOPRIL 40 MG, ELAVIL 100 MG,GABEPENTIN [address] SALDANA AND OBTAINED ONE TIME DOSES FOR TONIGHT.
[2022-12-30 04:39] LABS: BASOPHILS ABSOLUTE AUTO 0.04 K/mm3 (0.00-0.23); BASOPHILS PERCENT AUTO 1 % (0-2); EOSINOPHILS ABSOLUTE AUTO 0.25 K/mm3 (0.00-0.68); EOSINOPHILS PERCENT AUTO 3 % (0-6); Hematocrit 36.1 % (33.0-51.0); Hemoglobin 11.5 g/dL (11.5-16.0); IMMATURE GRAN ABSOLUTE AUTO 0.03 K/mm3 (0.00-0.10); IMMATURE GRAN PERCENT AUTO 0 % (0-1); LYMPHOCYTES ABSOLUTE AUTO 1.63 K/mm3 (0.84-5.20); LYMPHOCYTES PERCENT AUTO 19 % (21-46); MONOCYTES ABSOLUTE AUTO 0.82 K/mm3 (0.16-1.47); MONOCYTES PERCENT AUTO 10 % (4-13); Mean Corpuscular HGB 29.6 pg (26.0-34.0); Mean Corpuscular HGB Conc 31.9 g/dL (31.5-36.5); Mean Corpuscular Volume 93 fL (80-100); Mean Platelet Volume 10.3 fL (9.1-12.4); NEUTROPHILS ABSOLUTE AUTO 5.87 K/mm3 (1.96-9.15); NEUTROPHILS PERCENT AUTO 68 % (41-73); Platelet Count 211 K/mm3 (150-400); RDW Coefficient Variation 13.7 % (11.7-14.2); RDW Standard Deviation 46.5 fL (35.1-46.3); Red Blood Cell Count 3.89 M/mm3 (3.80-5.20); White Blood Cell Count 8.64 K/mm3 (4.00-11.30)
[2022-12-30 06:13] LABS: Bun/Creatinine Ratio 20.3 (12.0-20.0); Creatinine, Blood 0.54 mg/dL (0.40-1.00); Potassium, Blood 3.6 mmol/L (3.5-5.5)
--- NOTE | 2022-12-30 07:33 | NUR ---
SUMMARY PT WITH NO ACUTE CHANGES.PT MED INFO PER HER TABLET DOES NOT MATCH WHAT OUR MED REC HAS.PT VERB UNDERSTANDING NEED TO CLARIFY AND CORRECT PRIOR TO NAY DISCHARGE OR FOR FURTHER HOSPITALIZATION. DAY RN MAAME AGREES TO FOLLOW UP ON THIS TODAY.
[2022-12-30] MEDS ORDERED: POTA10T PO (15:36)
[2022-12-30] MEDS ORDERED: FURO40 PO (15:37)
--- NOTE | 2022-12-30 15:42 | NUR ---
Pt. is awake in bed and welcomes my visit. Pt. is pleasant, and displays evidence of being encouraged about the progress in her health. With theraputic listening and an encouraging presence establish rapport with Pt. Pt. displays evidence of mild confusion the longer we visit. [place] for Pt. Pt. verbalize gratitude for the spiritual care visit.
[2022-12-30] MEDS ORDERED: ACET325 PO (15:47)
[2022-12-30] MEDS ORDERED: LEVFLO500 PO (15:48)
--- NOTE | 2022-12-30 18:03 | NUR ---
DISCHARGE SUMMARY PATIENT ALERT AND ORIENTED. CHAIRFAST AT BASELINE, SEVERE LEFT SIDE DEFICIT DUE TO HX MS. LEFT BUTTOCK WOUND DRESSING CHANGED. TOLERATING REGULAR DIET AND LIQUIDS. ROUTINE IV ABX. CHRONIC INDWELLING CATHETER WNL. DISCHARGE ORDERS GIVEN. DISCHARGE INSTRUCTIONS GIVEN ON FOLLOW UP WITH HOME HEALTH AND WOUND CLINIC. NEW RXS FAXED TO [facility]. IV DC'D WNL. PATIENT LEFT UNIT AT 1730 VIA WHEELCHAIR WITH MEDICAL TRANSPORT FOR HOME.
== END 2022-12-30 17:59 | disposition home or self-care (01) | DRG 603 ==
LOC: ER 12:11 → SURS 17:06 → MEDS 17:06 → SURS 17:18
PROVIDERS: Emergency Medicine; Internal Medicine; ADMIT Internal Medicine
DX: L03.317 Cellulitis of buttock (principal); I77.4 Celiac artery compression syndrome; M25.18 Fistula, other specified site; L89.320 Pressure ulcer of left buttock, unstageable; G35 Multiple sclerosis; Z66 Do not resuscitate; I10 Essential (primary) hypertension; L89.159 Pressure ulcer of sacral region, unspecified stage; I77.9 Disorder of arteries and arterioles, unspecified; I70.90 Unspecified atherosclerosis; Z96.652 Presence of left artificial knee joint; Z96.612 Presence of left artificial shoulder joint; Z96.611 Presence of right artificial shoulder joint; B96.5 Pseudomonas (aeruginosa) (mallei) (pseudomallei) as the cause of diseases classified elsewhere; Z99.3 Dependence on wheelchair; Z74.01 Bed confinement status; Z88.0 Allergy status to penicillin; Z88.1 Allergy status to other antibiotic agents; Z88.5 Allergy status to narcotic agent; Z88.8 Allergy status to other drugs, medicaments and biological substances; Z88.7 Allergy status to serum and vaccine; Z79.899 Other long term (current) drug therapy; Z79.811 Long term (current) use of aromatase inhibitors; Z79.01 Long term (current) use of anticoagulants; Z79.2 Long term (current) use of antibiotics
CPT/HCPCS: 36415; 51702; 71045; 74177; 80048; 80053; 80202; 81001; 83605; 83690; 83880; 85025; 87070; 87075; 87077; 87086; 87186; 87205; 93005; 93010; 96361-59; 96365-59; 96366-59; 96367-59; 96375-59; 99285-25; A9270; J0692; J0696; J1650; J2405; J3370; J7030; J7050; Q9967

== ENCOUNTER → 2023-01-28 | Outpatient (CLI) | payer MEDICARE, OTHER ==
[~2023-01-28] MED LIST changes: +ACET325 PO; +FISH OIL 1,2001 EAC4 PO; +HYDROXYZINE PAM25 MG PO; +LEVFLO500 PO; +VITAMIN D31000 UNI1 PO; +ZOCOR20 MG PO
[2023-02-04 07:43] LABS: Stool Occult Bld Immuno 1 Negative (NEGATIVE)
== END ==
LOC: LAB SHORT 12:00 → LAB 12:00
PROVIDERS: Physician Assistant
DX: Z12.11 Encounter for screening for malignant neoplasm of colon (principal)
CPT/HCPCS: G0328

== ENCOUNTER 2023-02-11 17:50 | Inpatient (IN) | payer MEDICARE, OTHER ==
[~2023-02-11] VITALS: Ht 162.6 cm; Wt 102.5 kg
[~2023-02-11 17:50] MED LIST changes: +FURO20 PO; +Simvastatin10 MG PO; -ZOCOR20 MG PO
[2023-02-11 19:53] LABS: BASOPHILS ABSOLUTE AUTO 0.04 K/mm3 (0.00-0.23); BASOPHILS PERCENT AUTO 0 % (0-2); EOSINOPHILS ABSOLUTE AUTO 0.26 K/mm3 (0.00-0.68); EOSINOPHILS PERCENT AUTO 1 % (0-6); Hematocrit 40.4 % (33.0-51.0); Hemoglobin 13.1 g/dL (11.5-16.0); IMMATURE GRAN ABSOLUTE AUTO 0.12 K/mm3 (0.00-0.10); IMMATURE GRAN PERCENT AUTO 1 % (0-1); LYMPHOCYTES ABSOLUTE AUTO 1.25 K/mm3 (0.84-5.20); LYMPHOCYTES PERCENT AUTO 7 % (21-46); MONOCYTES ABSOLUTE AUTO 0.94 K/mm3 (0.16-1.47); MONOCYTES PERCENT AUTO 5 % (4-13); Mean Corpuscular HGB 28.8 pg (26.0-34.0); Mean Corpuscular HGB Conc 32.4 g/dL (31.5-36.5); Mean Corpuscular Volume 89 fL (80-100); NEUTROPHILS ABSOLUTE AUTO 16.26 K/mm3 (1.96-9.15); NEUTROPHILS PERCENT AUTO 86 % (41-73); Platelet Count 239 K/mm3 (150-400); RDW Coefficient Variation 13.5 % (11.7-14.2); Red Blood Cell Count 4.55 M/mm3 (3.80-5.20); White Blood Cell Count 18.87 K/mm3 (4.00-11.30)
[2023-02-11 19:56] LABS: Albumin/Globulin Ratio 0.5 (0.8-1.8); Bilirubin, Total 0.4 mg/dL (0.1-1.0); Calcium, Blood 8.9 mg/dL (8.5-10.1); Creatinine, Blood 0.54 mg/dL (0.40-1.00); Globulin, Blood 5.6 g/dL (2.2-4.0); Potassium, Blood 3.9 mmol/L (3.5-5.5); Total Protein, Blood 8.6 g/dL (6.4-8.2)
[2023-02-11 20:25] LABS: Source, Urine Foley catheter
[2023-02-11 20:44] LABS: Bilirubin, Urine Neg (Neg); Blood, Urine 2+ (Neg); Color, Urine Yellow (P-Yellow); Glucose Qualitative, Urine Neg (Neg); Ketones, Urine Neg (Neg); Leukocyte Esterase, Urine 1+ (Neg); Nitrite, Urine Neg (Neg); Protein, Urine 3+ (Neg); Specific Gravity, Urine 1.015 (1.003-1.022); Urobilinogen, Urine NORM (Normal)
[2023-02-11 20:55] LABS: Appearance, Urine Hazy (Clear); Red Blood Cells, Urine 0-2 /hpf (0-2); Squamous Epithelial Cells Rare /hpf (Few)
[2023-02-11 20:56] LABS: Bacteria Many /hpf; Mucus Light (0-Heavy); Renal Epithelial Mod /hpf (0-Rare); Transitional Epithelial Cells Few /hpf (0-Rare)
[2023-02-12] MEDS ORDERED: AVONEX IM ×2 (01:17)
[2023-02-12] MEDS ORDERED: NYSTATIN15 GM TOP ×2 (01:22)
[2023-02-12] MEDS ORDERED: ZESTRIL40 M1 PO ×2 (01:24)
[2023-02-12 05:40] LABS: BASOPHILS ABSOLUTE AUTO 0.04 K/mm3 (0.00-0.23); BASOPHILS PERCENT AUTO 0 % (0-2); EOSINOPHILS ABSOLUTE AUTO 0.09 K/mm3 (0.00-0.68); EOSINOPHILS PERCENT AUTO 1 % (0-6); Hematocrit 37.4 % (33.0-51.0); Hemoglobin 12.1 g/dL (11.5-16.0); IMMATURE GRAN ABSOLUTE AUTO 0.15 K/mm3 (0.00-0.10); IMMATURE GRAN PERCENT AUTO 1 % (0-1); LYMPHOCYTES ABSOLUTE AUTO 0.98 K/mm3 (0.84-5.20); LYMPHOCYTES PERCENT AUTO 5 % (21-46); MONOCYTES ABSOLUTE AUTO 0.87 K/mm3 (0.16-1.47); MONOCYTES PERCENT AUTO 5 % (4-13); Mean Corpuscular HGB 29.2 pg (26.0-34.0); Mean Corpuscular HGB Conc 32.4 g/dL (31.5-36.5); Mean Corpuscular Volume 90 fL (80-100); NEUTROPHILS ABSOLUTE AUTO 16.41 K/mm3 (1.96-9.15); NEUTROPHILS PERCENT AUTO 89 % (41-73); Platelet Count 202 K/mm3 (150-400); RDW Coefficient Variation 13.7 % (11.7-14.2); RDW Standard Deviation 44.9 fL (35.1-46.3); Red Blood Cell Count 4.14 M/mm3 (3.80-5.20); White Blood Cell Count 18.54 K/mm3 (4.00-11.30)
[2023-02-12 06:19] LABS: Bun/Creatinine Ratio 27.4 (12.0-20.0); Calcium, Blood 8.3 mg/dL (8.5-10.1); Creatinine, Blood 0.51 mg/dL (0.40-1.00); Potassium, Blood 3.7 mmol/L (3.5-5.5)
--- NOTE | 2023-02-12 19:17 | NUR ---
SHIFT SUMMARY: PT A&O X4. PT HAS BEEN PLEASANT AND COOPERATIVE WITH CARE THIS SHIFT. PT RECEIVED ABX FOR SEPSIS UTI AND TOLERATING WELL. PT IS BEDREST AND USES LIFT AT HOME WITH CAREGIVERS TO HELP. PT HAS NOT HAD MUCH OF AN APPETITE. NO N/V OR C/O PAIN. PT HAS LARGE PRESSURE ULCER ON LEFT BUTTOCK. PT STATES BANDAGES ARE CHANGED AT HOME ON . PT HAS CHRONIC MCDONOUGH, URINE YELLOW-ORANGE IN COLOR AND DRAINING TO GRAVITY. ROTATING PT Q2. PT STATED SHE MAY BE ABLE TO GO HOME TOMORROW. CALL LIGHT IN REACH. BED IN LOWEST POSITION. REPORT GIVEN TO NIGHT NURSE.
--- NOTE | 2023-02-13 06:29 | NUR ---
SHIFT SUMMERY, PT RESTED WELL SURING THE NIGHT, AWOKE EASILY WHEN MEDS NEEDED TO BE GIVEN. CALL LIGHT IN REACH.
[2023-02-13 08:39] LABS: BASOPHILS ABSOLUTE AUTO 0.04 K/mm3 (0.00-0.23); BASOPHILS PERCENT AUTO 0 % (0-2); EOSINOPHILS ABSOLUTE AUTO 0.49 K/mm3 (0.00-0.68); EOSINOPHILS PERCENT AUTO 3 % (0-6); Hematocrit 35.3 % (33.0-51.0); Hemoglobin 11.1 g/dL (11.5-16.0); IMMATURE GRAN ABSOLUTE AUTO 0.07 K/mm3 (0.00-0.10); IMMATURE GRAN PERCENT AUTO 1 % (0-1); LYMPHOCYTES ABSOLUTE AUTO 1.41 K/mm3 (0.84-5.20); LYMPHOCYTES PERCENT AUTO 10 % (21-46); MONOCYTES ABSOLUTE AUTO 0.86 K/mm3 (0.16-1.47); MONOCYTES PERCENT AUTO 6 % (4-13); Mean Corpuscular HGB 28.8 pg (26.0-34.0); Mean Corpuscular HGB Conc 31.4 g/dL (31.5-36.5); Mean Corpuscular Volume 92 fL (80-100); Mean Platelet Volume 9.9 fL (9.1-12.4); NEUTROPHILS ABSOLUTE AUTO 11.37 K/mm3 (1.96-9.15); NEUTROPHILS PERCENT AUTO 80 % (41-73); Platelet Count 174 K/mm3 (150-400); RDW Coefficient Variation 13.7 % (11.7-14.2); RDW Standard Deviation 46.6 fL (35.1-46.3); Red Blood Cell Count 3.85 M/mm3 (3.80-5.20); White Blood Cell Count 14.24 K/mm3 (4.00-11.30)
[2023-02-13 08:58] LABS: Bun/Creatinine Ratio 29.9 (12.0-20.0); Calcium, Blood 8.8 mg/dL (8.5-10.1); Creatinine, Blood 0.5 mg/dL (0.40-1.00); Potassium, Blood 3.5 mmol/L (3.5-5.5)
--- NOTE | 2023-02-13 12:02 | NUR ---
"Spiritual Care | Pt. request Pt. is awake in bed and welcomes my visit. Pt. is pleasant and rapport is quickly established. Facilitated a life review. Pt. displays evidence of being an overcomer in her lifetime. Considered matters of kurt and belief. Prayed with Pt. Pt. verbalized gratitude for the spiritual care visit."
--- NOTE | 2023-02-13 18:08 | NUR ---
SHIFT SUMMARY: PT A&O X4. PT HAS BEEN PLEASANT AND COOPERATIVE THROUGHOUT SHIFT. NO ACUTE CHANGES WITH PT THIS SHIFT. PT C/O 2/10 PAIN IN THROAT THIS SHIFT. TYLENOL GIVEN AND STATED IT HAS RESOLVED. PT HAS SOME REDNESS IN GROIN. NYSTATIN CREAM APPLIED. BANDAGE ON BOTTOM CHANGED. PT STATES CAREGIVERS AT HOME CHANGE IT --. ROTATING PT Q2. PT REFUSED MORNING GABAPENTIN AND MID DAY BACLOFEN. PT STATES SHE ONLY TAKES GABAPENTIN AT NIGHT DUE TO MAKING HER TIRED AND BACLOFEN TWICE A DAY. BLLOD CULTURES OBTAINED AND ECHO PERFORMED ON PT THIS AFTERNOON. PT RECEIVED. PT TOLERATING ABX WELL. CALL LIGHT IN REACH. BED IN LOWEST POSITION. WILL CONTINUE TO MONITOR.
[2023-02-14 05:12] LABS: BASOPHILS ABSOLUTE AUTO 0.05 K/mm3 (0.00-0.23); BASOPHILS PERCENT AUTO 1 % (0-2); EOSINOPHILS ABSOLUTE AUTO 0.74 K/mm3 (0.00-0.68); EOSINOPHILS PERCENT AUTO 9 % (0-6); Hematocrit 33.7 % (33.0-51.0); Hemoglobin 10.7 g/dL (11.5-16.0); IMMATURE GRAN ABSOLUTE AUTO 0.02 K/mm3 (0.00-0.10); IMMATURE GRAN PERCENT AUTO 0 % (0-1); LYMPHOCYTES PERCENT AUTO 19 % (21-46); MONOCYTES ABSOLUTE AUTO 0.73 K/mm3 (0.16-1.47); MONOCYTES PERCENT AUTO 9 % (4-13); Mean Corpuscular HGB 28.5 pg (26.0-34.0); Mean Corpuscular HGB Conc 31.8 g/dL (31.5-36.5); Mean Corpuscular Volume 90 fL (80-100); Mean Platelet Volume 9.5 fL (9.1-12.4); NEUTROPHILS ABSOLUTE AUTO 4.91 K/mm3 (1.96-9.15); NEUTROPHILS PERCENT AUTO 62 % (41-73); Platelet Count 184 K/mm3 (150-400); RDW Coefficient Variation 13.5 % (11.7-14.2); RDW Standard Deviation 44.5 fL (35.1-46.3); Red Blood Cell Count 3.75 M/mm3 (3.80-5.20); White Blood Cell Count 7.95 K/mm3 (4.00-11.30)
--- NOTE | 2023-02-14 05:27 | NUR ---
SHIFT SUMMERY, PT RESTING IN BED, PT HAS RASH ON HER TRUNK ARMS AND LEGS, PT ON VANCO. PT DENED ITHCING OR ANY DISCONFORT. PT STATED SHE WOULD CALL IF ANY CAHNGE OR WOESENING OF SYMPTOMS. MITCH LIGHT IN REACH.
[2023-02-14 05:32] LABS: Anion Gap 4 mmol/L (6-16); Blood Urea Nitrogen 19 mg/dL (8-24); Bun/Creatinine Ratio 34.8 (12.0-20.0); CO2, Blood 30 mmol/L (21-32); Calcium, Blood 8.6 mg/dL (8.5-10.1); Chloride, Blood 106 mmol/L (98-108); Creatinine, Blood 0.55 mg/dL (0.40-1.00); Glomerular Filtration Rate 97 (60-); Glucose, Blood 95 mg/dL (70-99); Potassium, Blood 3.3 mmol/L (3.5-5.5); Sodium, Blood 140 mmol/L (136-145); Vancomycin, Trough 18.2 ug/mL (5.0-10.0)
--- NOTE | 2023-02-14 18:05 | NUR ---
SHIFT SUMMARY PATIENT DENIES PAIN, NAUSEA, AND SHORTNESS OF BREATH. PATIENT ON BEDREST. PATIENT CAREGIVER VISITED TODAY, UPDATE GIVEN AT PATIENT REQUEST. PATIENT IS EATING AND DRINKING WELL. CHRONIC MCDONOUGH IS PATENT AND DRAINING YELLOW URINE. PATIENT IS EAGER TO GO HOME. PATIENT IS VERY PLEASANT AND COOPERATIVE WITH CARE.
--- NOTE | 2023-02-15 02:21 | NUR ---
SHIFT SUMMERY. pT RESTING IN ED, SLEEPING OFF AND ON. PT DENED PAIN , PT BEING TURNED , BUT WANTING TO STAYON SAME SIDE FRO A LITTLE LONGER BECOUSE SHE WAS REALY COMFORTABLE. CALL LIGHT IN REACH.
--- NOTE | 2023-02-15 09:00 | NUR ---
pt laying in bed awake a/ox3, pleasant and cooperative with care, follows commands well, denies pain, lungs are clear in upper benavidez, dim in bases, resp even and unlabored, no cough noted, hrr, no edema noted, ppp+2, foot drop to left foot, can wiggle toes, piv site is clear and patent, btx4, abd soft nontender, voids via chronic duval cath, skin has decub to left buttock and rash to left leg, left arm is flacid, face is symetrical, and swallows well, normally wheelchair bound via lift, call light in reach.
[2023-02-15 17:20] LABS: Vancomycin, Trough 18.5 ug/mL (5.0-10.0)
--- NOTE | 2023-02-15 18:29 | NUR ---
pt resting in bed, no needs every time she is checked, went to hang vanco, iv is infiltrated, will place new one after she finishes dinner. call light in reach.
--- NOTE | 2023-02-16 03:27 | NUR ---
SHIFT SUMMERY, PT RESTING WELL, NO C/O PAIN OR DISSCONFORT. CALL LIGHT IN REACH. NO CHANGES.
[2023-02-16 05:50] LABS: Albumin, Blood 2.6 g/dL (3.4-5.0); Anion Gap 7 mmol/L (6-16); Blood Urea Nitrogen 18 mg/dL (8-24); Bun/Creatinine Ratio 36.7 (12.0-20.0); CO2, Blood 31 mmol/L (21-32); Calcium, Blood 9.1 mg/dL (8.5-10.1); Chloride, Blood 101 mmol/L (98-108); Creatinine, Blood 0.49 mg/dL (0.40-1.00); Glomerular Filtration Rate 100 (60-); Glucose, Blood 117 mg/dL (70-99); Phosphorus, Blood 3.2 mg/dL (2.5-4.9); Potassium, Blood 3.1 mmol/L (3.5-5.5); Sodium, Blood 139 mmol/L (136-145)
--- NOTE | 2023-02-16 18:44 | NUR ---
SHIFT SUMMARY: NO ACUTE EVENTS. DENIED PAIN. A&O X 4, PLEASANT AND COOPERATIVE. LUE AND LLE ALMOST FLACCID. NO BM TODAY, LAST ONE SEVERAL DAYS AGO. MCDONOUGH IN PLACE FOR NEUROGENIC BLADDER D/T MS, DRAINING CLEAR YELLOW URINE. TOLERATING REGULAR DIET, GOOD INTAKE. RASH IN GROIN APPEARS RESOLVED. ON ROOM AIR. WAS DISAPPOINTED THAT D/C WAS DELAYED UNTIL TOMORROW.
--- NOTE | 2023-02-17 04:14 | NUR ---
SHIFT SUMMARY PT RESTING QUIETLY T/O MOST OF SHIFT. MCDONOUGH IN PLACE WHICH PT SAYS IS TO PROTECT HER COCCYX WOUND PER HOME HEALTH. PT IS RECEIVING VANCO IV. WILL CONT TO MONITOR AND PROVIDE CARE T/O SHIFT.
[2023-02-17 05:27] LABS: Albumin, Blood 2.5 g/dL (3.4-5.0); Anion Gap 2 mmol/L (6-16); Blood Urea Nitrogen 22 mg/dL (8-24); Bun/Creatinine Ratio 44.4 (12.0-20.0); CO2, Blood 34 mmol/L (21-32); Calcium, Blood 9.2 mg/dL (8.5-10.1); Chloride, Blood 101 mmol/L (98-108); Glomerular Filtration Rate 100 (60-); Glucose, Blood 125 mg/dL (70-99); Phosphorus, Blood 3.3 mg/dL (2.5-4.9); Potassium, Blood 3.2 mmol/L (3.5-5.5); Sodium, Blood 137 mmol/L (136-145)
--- NOTE | 2023-02-17 13:29 | NUR ---
Pt. is awake and welcomes my visit. Pt. verbalizes that she is awaiting D/C. Pt. displays evidence of being aware, engaged and ready to be D/C home. Re-established rapport. Pt. verbalizes no significant concerns about D/C. Prayed with Pt. Pt. verbalized gratitude for [facility] spiritual care visit.
[2023-02-17] MEDS ORDERED: POTA10T PO ×2 (13:30)
[2023-02-17] MEDS ORDERED: AMLO10 PO ×2 (13:31)
[2023-02-17] MEDS ORDERED: HYDCHL25 PO ×2 (13:33)
[2023-02-17] MEDS ORDERED: JUVEN PACKET1 EAC3 PO ×2 (13:33)
--- NOTE | 2023-02-17 16:30 | NUR ---
PATIENT DISCHARGED TO HOME VIA AMBULANCE. IV SALINE LOCK REMOVED WITHOUT INCIDENT. VERBALIZED UNDERSTANDING OF D/C INSTRUCTIONS. OFF UNIT VIA PILAR AT 1617. NO PERSONAL BELONGINGS LEFT BEHIND IN ROOM.
== END 2023-02-17 16:22 | disposition home health service (06) | DRG 871 ==
LOC: ER 17:50 → MEDS 23:06
PROVIDERS: Family Medicine; Internal Medicine; Student in an Organized Health Care Education/Training Program; ADMIT Internal Medicine
DX: A41.1 Sepsis due to other specified staphylococcus (principal); L89.324 Pressure ulcer of left buttock, stage 4; L03.116 Cellulitis of left lower limb; Z68.41 Body mass index [BMI] 40.0-44.9, adult; G81.94 Hemiplegia, unspecified affecting left nondominant side; L03.317 Cellulitis of buttock; G35 Multiple sclerosis; I10 Essential (primary) hypertension; I25.10 Atherosclerotic heart disease of native coronary artery without angina pectoris; E66.01 Morbid (severe) obesity due to excess calories; L89.159 Pressure ulcer of sacral region, unspecified stage; Z28.21 Immunization not carried out because of patient refusal; E87.6 Hypokalemia; Z96.652 Presence of left artificial knee joint; Z98.890 Other specified postprocedural states; Z99.3 Dependence on wheelchair; Z88.0 Allergy status to penicillin; Z88.1 Allergy status to other antibiotic agents; Z88.6 Allergy status to analgesic agent; Z88.7 Allergy status to serum and vaccine; Z88.8 Allergy status to other drugs, medicaments and biological substances; Z79.2 Long term (current) use of antibiotics; Z79.899 Other long term (current) drug therapy
CPT/HCPCS: 36415; 51702; 71046; 74177; 80048; 80053; 80069; 80202; 81001; 82550; 83605; 85025; 87040; 87077; 87086; 87186; 93005; 93010; 93306; 96374; 99285-25; A9270; J0692; J1650; J3370; J7030; J7050; Q0177; Q9967

== ENCOUNTER 2023-02-18 00:37 | Day surgery (SDC) | payer MEDICARE, OTHER ==
[~2023-02-18 00:37] MED LIST changes: +AMLO10 PO; +AVONEX IM; +JUVEN PACKET1 EAC3 PO; +NYSTATIN15 GM TOP; +ZESTRIL40 M1 PO
== END 2023-02-18 23:03 | disposition home or self-care (01) ==
LOC: WOUND 00:37
DX: L89.324 Pressure ulcer of left buttock, stage 4 (principal); G35 Multiple sclerosis; R77.0 Abnormality of albumin; I73.9 Peripheral vascular disease, unspecified; I87.2 Venous insufficiency (chronic) (peripheral); G81.04 Flaccid hemiplegia affecting left nondominant side; M62.82 Rhabdomyolysis
CPT/HCPCS: G0463

== ENCOUNTER 2023-03-11 02:40 | Day surgery (SDC) | payer MEDICARE, OTHER | END 2023-03-11 22:54 | disposition home or self-care (01) | LOC: WOUND 02:40 | DX: L89.324 Pressure ulcer of left buttock, stage 4 (principal); G35 Multiple sclerosis; I73.9 Peripheral vascular disease, unspecified; I87.2 Venous insufficiency (chronic) (peripheral); G81.04 Flaccid hemiplegia affecting left nondominant side; M62.82 Rhabdomyolysis | CPT/HCPCS: G0463 ==

== ENCOUNTER 2023-03-25 02:38 | Day surgery (SDC) | payer MEDICARE, OTHER | END 2023-03-25 23:31 | disposition home or self-care (01) | LOC: WOUND 02:38 | DX: L89.324 Pressure ulcer of left buttock, stage 4 (principal); G35 Multiple sclerosis; R77.0 Abnormality of albumin; I73.9 Peripheral vascular disease, unspecified; I87.2 Venous insufficiency (chronic) (peripheral); G81.04 Flaccid hemiplegia affecting left nondominant side; M62.82 Rhabdomyolysis | CPT/HCPCS: G0463 ==

== ENCOUNTER → 2023-04-01 | Outpatient (CLI) | payer MEDICARE, OTHER ==
[2023-04-01 15:08] LABS: Source, Urine Foley catheter
[2023-04-01 17:03] LABS: Appearance, Urine Hazy (Clear); Bilirubin, Urine Neg (Neg); Blood, Urine 4+ (Neg); Color, Urine Yellow (P-Yellow); Glucose Qualitative, Urine Neg (Neg); Ketones, Urine Neg (Neg); Leukocyte Esterase, Urine 3+ (Neg); Nitrite, Urine Pos (Neg); Protein, Urine 2+ (Neg); Specific Gravity, Urine 1.015 (1.003-1.022); Urobilinogen, Urine NORM (Normal)
[2023-04-01 17:15] LABS: White Blood Cells, Urine 25-50 /hpf (0-5)
[2023-04-01 17:16] LABS: Bacteria Mod /hpf; Squamous Epithelial Cells Few /hpf (Few)
== END | disposition home or self-care (01) ==
LOC: LAB SHORT 10:45 → LAB 10:45
PROVIDERS: Physician Assistant
DX: N39.0 Urinary tract infection, site not specified (principal)
CPT/HCPCS: 81001; 87077; 87086; 87186

== ENCOUNTER 2023-04-08 05:37 | Day surgery (SDC) | payer MEDICARE, OTHER | END 2023-04-08 23:06 | disposition home or self-care (01) | LOC: WOUND 05:37 | DX: L89.324 Pressure ulcer of left buttock, stage 4 (principal); G35 Multiple sclerosis; R77.0 Abnormality of albumin; I73.9 Peripheral vascular disease, unspecified; I87.2 Venous insufficiency (chronic) (peripheral); G81.04 Flaccid hemiplegia affecting left nondominant side; M62.82 Rhabdomyolysis | CPT/HCPCS: G0463 ==

== ENCOUNTER 2023-04-22 00:39 | Day surgery (SDC) | payer MEDICARE, OTHER | END 2023-04-22 22:56 | disposition home or self-care (01) | LOC: WOUND 00:39 | DX: L89.324 Pressure ulcer of left buttock, stage 4 (principal); G35 Multiple sclerosis; R77.0 Abnormality of albumin; I73.9 Peripheral vascular disease, unspecified; I87.2 Venous insufficiency (chronic) (peripheral); G81.04 Flaccid hemiplegia affecting left nondominant side; M62.82 Rhabdomyolysis | CPT/HCPCS: A9270; G0463 ==

== ENCOUNTER → 2023-05-08 | Day surgery (SDC) | payer MEDICARE, OTHER ==
[~2023-05-08] MED LIST changes: +LEVO750 PO
== END ==
LOC: WOUND 03:16
DX: L89.324 Pressure ulcer of left buttock, stage 4 (principal); G35 Multiple sclerosis; R77.0 Abnormality of albumin; I73.9 Peripheral vascular disease, unspecified; I87.2 Venous insufficiency (chronic) (peripheral); G81.04 Flaccid hemiplegia affecting left nondominant side; M62.82 Rhabdomyolysis
CPT/HCPCS: G0463

== ENCOUNTER 2023-06-05 01:09 | Day surgery (SDC) | payer MEDICARE, OTHER | END 2023-06-05 22:42 | disposition home or self-care (01) | LOC: WOUND 01:09 | DX: L89.324 Pressure ulcer of left buttock, stage 4 (principal); G35 Multiple sclerosis; R77.0 Abnormality of albumin; I73.9 Peripheral vascular disease, unspecified; I87.2 Venous insufficiency (chronic) (peripheral); G81.04 Flaccid hemiplegia affecting left nondominant side; M62.82 Rhabdomyolysis | CPT/HCPCS: G0463 ==

== ENCOUNTER → 2023-06-15 | Outpatient (CLI) | payer MEDICARE, OTHER ==
[2023-06-15 14:36] LABS: BASOPHILS ABSOLUTE AUTO 0.07 K/mm3 (0.00-0.23); BASOPHILS PERCENT AUTO 1 % (0-2); EOSINOPHILS ABSOLUTE AUTO 0.58 K/mm3 (0.00-0.68); EOSINOPHILS PERCENT AUTO 11 % (0-6); Hematocrit 38.9 % (33.0-51.0); IMMATURE GRAN ABSOLUTE AUTO 0.02 K/mm3 (0.00-0.10); IMMATURE GRAN PERCENT AUTO 0 % (0-1); LYMPHOCYTES ABSOLUTE AUTO 1.99 K/mm3 (0.84-5.20); LYMPHOCYTES PERCENT AUTO 36 % (21-46); MONOCYTES ABSOLUTE AUTO 0.68 K/mm3 (0.16-1.47); MONOCYTES PERCENT AUTO 12 % (4-13); Mean Corpuscular HGB 28.7 pg (26.0-34.0); Mean Corpuscular HGB Conc 30.8 g/dL (31.5-36.5); Mean Corpuscular Volume 93 fL (80-100); Mean Platelet Volume 10.6 fL (9.1-12.4); NEUTROPHILS ABSOLUTE AUTO 2.21 K/mm3 (1.96-9.15); NEUTROPHILS PERCENT AUTO 40 % (41-73); Platelet Count 206 K/mm3 (150-400); RDW Coefficient Variation 13.9 % (11.7-14.2); Red Blood Cell Count 4.18 M/mm3 (3.80-5.20); White Blood Cell Count 5.55 K/mm3 (4.00-11.30)
[2023-06-15 16:47] LABS: Alanine Aminotransfer (ALT/SGP 40 U/L (12-78); Albumin, Blood 2.9 g/dL (3.4-5.0); Albumin/Globulin Ratio 0.6 (0.8-1.8); Alk Phos 62 U/L (50-136); Anion Gap 6 mmol/L (6-16); Aspartate Aminotrans (AST/SGOT 38 U/L (12-37); Bilirubin, Total 0.2 mg/dL (0.1-1.0); Blood Urea Nitrogen 23 mg/dL (8-24); Bun/Creatinine Ratio 30.1 (12.0-20.0); CO2, Blood 27 mmol/L (21-32); Calcium, Blood 9.1 mg/dL (8.5-10.1); Chloride, Blood 107 mmol/L (98-108); Cholesterol 179 mg/dL (50-200); Creatinine, Blood 0.76 mg/dL (0.40-1.00); Glomerular Filtration Rate 83 (60-); Glucose, Blood 162 mg/dL (70-99); HDL Cholesterol 45 mg/dL (>39); LDL/HDL RATIO 1.4; Low Density Lipoprotein Chol 61 mg/dL (0-110); Potassium, Blood 4.8 mmol/L (3.5-5.5); Sodium, Blood 140 mmol/L (136-145); Total Protein, Blood 7.9 g/dL (6.4-8.2); Triglycerides 366 mg/dL (30-160); Very Low Density Lipoprot Chol 73 mg/dL (6-32)
[2023-06-16 15:07] LABS: IRON BIND.CAP.(TIBC) 324 ug/dL (250-450); IRON SATURATION 18 % (15-55); IRON, SERUM 57 ug/dL (27-139); UIBC 267 ug/dL (118-369)
== END | disposition home or self-care (01) ==
LOC: LAB SHORT 11:45 → LAB 11:45
PROVIDERS: Physician Assistant
DX: K21.00 Gastro-esophageal reflux disease with esophagitis, without bleeding (principal); I73.9 Peripheral vascular disease, unspecified; E61.1 Iron deficiency; I10 Essential (primary) hypertension
CPT/HCPCS: 80053; 80061; 85025

== ENCOUNTER → 2023-06-25 | Outpatient (CLI) | payer MEDICARE, OTHER ==
[2023-06-25 16:10] LABS: BASOPHILS ABSOLUTE AUTO 0.05 K/mm3 (0.00-0.23); BASOPHILS PERCENT AUTO 1 % (0-2); EOSINOPHILS ABSOLUTE AUTO 0.68 K/mm3 (0.00-0.68); EOSINOPHILS PERCENT AUTO 13 % (0-6); Hematocrit 38.7 % (33.0-51.0); Hemoglobin 12.1 g/dL (11.5-16.0); IMMATURE GRAN ABSOLUTE AUTO 0.01 K/mm3 (0.00-0.10); IMMATURE GRAN PERCENT AUTO 0 % (0-1); LYMPHOCYTES ABSOLUTE AUTO 1.73 K/mm3 (0.84-5.20); LYMPHOCYTES PERCENT AUTO 32 % (21-46); MONOCYTES ABSOLUTE AUTO 0.59 K/mm3 (0.16-1.47); MONOCYTES PERCENT AUTO 11 % (4-13); Mean Corpuscular HGB 28.6 pg (26.0-34.0); Mean Corpuscular HGB Conc 31.3 g/dL (31.5-36.5); Mean Corpuscular Volume 92 fL (80-100); Mean Platelet Volume 10.5 fL (9.1-12.4); NEUTROPHILS ABSOLUTE AUTO 2.36 K/mm3 (1.96-9.15); NEUTROPHILS PERCENT AUTO 44 % (41-73); Platelet Count 203 K/mm3 (150-400); RDW Coefficient Variation 13.4 % (11.7-14.2); RDW Standard Deviation 45.1 fL (35.1-46.3); Red Blood Cell Count 4.23 M/mm3 (3.80-5.20); White Blood Cell Count 5.42 K/mm3 (4.00-11.30)
[2023-06-25 16:46] LABS: Ferritin, Serum 30 ng/mL (8-252); Iron Serum 41 ug/dL (50-170); LDL/HDL RATIO 1.7; Total Iron Binding Capacity 341 ug/dL (250-450); Very Low Density Lipoprot Chol 42 mg/dL (6-32)
[2023-06-25 16:47] LABS: Albumin, Blood 3.1 g/dL (3.4-5.0); Albumin/Globulin Ratio 0.6 (0.8-1.8); Alk Phos 64 U/L (50-136); Anion Gap 4 mmol/L (6-16); Aspartate Aminotrans (AST/SGOT 32 U/L (12-37); Bilirubin, Total 0.3 mg/dL (0.1-1.0); Blood Urea Nitrogen 21 mg/dL (8-24); CHOL/HDL RATIO 3.5; CO2, Blood 30 mmol/L (21-32); Calcium, Blood 8.9 mg/dL (8.5-10.1); Chloride, Blood 106 mmol/L (98-108); Cholesterol 183 mg/dL (50-200); Creatinine, Blood 0.64 mg/dL (0.40-1.00); Glomerular Filtration Rate 93 (60-); Glucose, Blood 92 mg/dL (70-99); HDL Cholesterol 53 mg/dL (>39); Low Density Lipoprotein Chol 88 mg/dL (0-110); Potassium, Blood 4.7 mmol/L (3.5-5.5); Sodium, Blood 140 mmol/L (136-145); Total Protein, Blood 8.1 g/dL (6.4-8.2); Triglycerides 211 mg/dL (30-160)
[2023-06-25 17:05] LABS: Alanine Aminotransfer (ALT/SGP 47 U/L (12-78)
== END | disposition home or self-care (01) ==
LOC: LAB 13:57 → LAB SHORT 13:57
PROVIDERS: Physician Assistant
DX: L89.324 Pressure ulcer of left buttock, stage 4 (principal); G81.04 Flaccid hemiplegia affecting left nondominant side; E44.1 Mild protein-calorie malnutrition; K21.9 Gastro-esophageal reflux disease without esophagitis; E66.01 Morbid (severe) obesity due to excess calories; I10 Essential (primary) hypertension
CPT/HCPCS: 80053; 80061; 82728; 83540; 83550; 85025

== ENCOUNTER 2023-07-03 01:29 | Day surgery (SDC) | payer MEDICARE, OTHER | END 2023-07-03 23:12 | disposition home or self-care (01) | LOC: WOUND 01:29 | DX: L89.324 Pressure ulcer of left buttock, stage 4 (principal); G35 Multiple sclerosis; R77.0 Abnormality of albumin; I73.9 Peripheral vascular disease, unspecified; I87.2 Venous insufficiency (chronic) (peripheral); G81.04 Flaccid hemiplegia affecting left nondominant side; M62.82 Rhabdomyolysis | CPT/HCPCS: G0463 ==

== ENCOUNTER 2023-07-27 01:26 | Day surgery (SDC) | payer MEDICARE, OTHER | END 2023-07-27 22:55 | disposition home or self-care (01) | LOC: WOUND 01:26 | DX: L89.324 Pressure ulcer of left buttock, stage 4 (principal); G35 Multiple sclerosis; R77.0 Abnormality of albumin; I73.9 Peripheral vascular disease, unspecified; I87.2 Venous insufficiency (chronic) (peripheral); G81.04 Flaccid hemiplegia affecting left nondominant side; M62.82 Rhabdomyolysis | CPT/HCPCS: A9270; G0463 ==

== ENCOUNTER 2023-09-02 02:28 | Day surgery (SDC) | payer MEDICARE, OTHER | END 2023-09-02 23:50 | disposition home or self-care (01) | LOC: WOUND 02:28 | DX: L89.324 Pressure ulcer of left buttock, stage 4 (principal); G35 Multiple sclerosis; R77.0 Abnormality of albumin; I73.9 Peripheral vascular disease, unspecified; I87.2 Venous insufficiency (chronic) (peripheral); G81.04 Flaccid hemiplegia affecting left nondominant side; M62.82 Rhabdomyolysis | CPT/HCPCS: G0463 ==

== ENCOUNTER 2023-09-30 04:50 | Day surgery (SDC) | payer MEDICARE, OTHER | END 2023-09-30 23:17 | disposition home or self-care (01) | LOC: WOUND 04:50 | DX: L89.324 Pressure ulcer of left buttock, stage 4 (principal); G35 Multiple sclerosis; R77.0 Abnormality of albumin; I73.9 Peripheral vascular disease, unspecified; I87.2 Venous insufficiency (chronic) (peripheral); G81.04 Flaccid hemiplegia affecting left nondominant side; M62.82 Rhabdomyolysis | CPT/HCPCS: G0463 ==

== ENCOUNTER → 2023-10-05 | Outpatient (CLI) | payer MEDICARE, OTHER ==
[2023-10-12 15:35] LABS: Stool Occult Bld Immuno 1 Negative (NEGATIVE)
== END ==
LOC: LAB 17:00 → LAB SHORT 17:00
PROVIDERS: Physician Assistant
DX: Z12.11 Encounter for screening for malignant neoplasm of colon (principal)
CPT/HCPCS: G0328

== ENCOUNTER 2023-10-29 02:37 | Day surgery (SDC) | payer MEDICARE, OTHER | END 2023-10-29 22:54 | disposition home or self-care (01) | LOC: WOUND 02:37 | DX: L89.324 Pressure ulcer of left buttock, stage 4 (principal); G35 Multiple sclerosis; R77.0 Abnormality of albumin; I73.9 Peripheral vascular disease, unspecified; I87.2 Venous insufficiency (chronic) (peripheral); G81.04 Flaccid hemiplegia affecting left nondominant side; M62.82 Rhabdomyolysis | CPT/HCPCS: A9270; G0463 ==

== ENCOUNTER 2023-12-09 01:30 | Day surgery (SDC) | payer OTHER | END 2023-12-09 23:22 | disposition home or self-care (01) | LOC: WOUND 01:30 | DX: L89.324 Pressure ulcer of left buttock, stage 4 (principal); G35 Multiple sclerosis; R77.0 Abnormality of albumin; I73.9 Peripheral vascular disease, unspecified; I87.2 Venous insufficiency (chronic) (peripheral); G81.04 Flaccid hemiplegia affecting left nondominant side; M62.82 Rhabdomyolysis | CPT/HCPCS: G0463 ==

== ENCOUNTER 2023-12-23 02:57 | Day surgery (SDC) | payer OTHER | END 2023-12-23 23:04 | disposition home or self-care (01) | LOC: WOUND 02:57 | DX: L89.324 Pressure ulcer of left buttock, stage 4 (principal); G35 Multiple sclerosis; R77.0 Abnormality of albumin; I73.9 Peripheral vascular disease, unspecified; I87.2 Venous insufficiency (chronic) (peripheral); M62.82 Rhabdomyolysis | CPT/HCPCS: A9270; G0463 ==

== ENCOUNTER → 2023-12-25 | Outpatient (CLI) | payer OTHER ==
[2023-12-25 14:30] LABS: Source, Urine Foley catheter
[2023-12-25 16:07] LABS: Appearance, Urine Hazy (Clear); Bilirubin, Urine Neg (Neg); Blood, Urine Neg (Neg); Color, Urine Yellow (P-Yellow); Glucose Qualitative, Urine Neg (Neg); Ketones, Urine Neg (Neg); Leukocyte Esterase, Urine 3+ (Neg); Nitrite, Urine Pos (Neg); Protein, Urine Neg (Neg); Urobilinogen, Urine NORM (Normal)
[2023-12-25 16:20] LABS: Amorphous Light (0-Heavy); Bacteria Many /hpf; Squamous Epithelial Cells Few /hpf (Few); White Blood Cells, Urine 25-50 /hpf (0-5)
== END | disposition home or self-care (01) ==
LOC: LAB SHORT 14:27 → LAB 14:27
PROVIDERS: Physician Assistant
DX: N39.0 Urinary tract infection, site not specified (principal)
CPT/HCPCS: 81001; 87077; 87086; 87186

== ENCOUNTER 2024-01-06 01:40 | Day surgery (SDC) | payer OTHER ==
[2024-01-06] MEDS ORDERED: Triamcinolone Acet 0.1% Cream 15 gm ONE (12:44)
== END 2024-01-06 23:32 | disposition home or self-care (01) ==
LOC: WOUND 01:40
DX: L89.324 Pressure ulcer of left buttock, stage 4 (principal); G35 Multiple sclerosis; R77.0 Abnormality of albumin; I73.9 Peripheral vascular disease, unspecified; I87.2 Venous insufficiency (chronic) (peripheral); G81.04 Flaccid hemiplegia affecting left nondominant side; M62.82 Rhabdomyolysis
CPT/HCPCS: A6196; A9270; G0463

== ENCOUNTER 2024-03-23 03:20 | Day surgery (SDC) | payer OTHER ==
[~2024-03-23 03:20] MED LIST changes: +AQUAPHOR HEALING OIN TOP; +Acetaminophen650 M1 PO; +CEFD300 PO; +CELEBREX200 MG PO; +FISH OIL 1,0001 EA10; +HYDHCL25 PO; -HYDROXYZINE PAM25 MG PO; +MICONAZOLE NIT130 GM TOP; +MICONAZOLE NITR85 GM TOP; +MIRALAX17 GM PO; +SULTRIDS PO; +Sanctura20 MG PO; +Seroquel Xr50 MG PO; +Triamcinolone A15 G3 TOP; +VISBIOME 112.51 EACH PO
== END 2024-03-23 22:58 | disposition home or self-care (01) ==
LOC: WOUND 03:20
DX: L89.324 Pressure ulcer of left buttock, stage 4 (principal); G35 Multiple sclerosis; R77.0 Abnormality of albumin; I73.9 Peripheral vascular disease, unspecified; I87.2 Venous insufficiency (chronic) (peripheral); G81.04 Flaccid hemiplegia affecting left nondominant side; M62.82 Rhabdomyolysis
CPT/HCPCS: G0463

== ENCOUNTER 2024-04-08 05:25 | Day surgery (SDC) | payer OTHER | END 2024-04-08 22:42 | disposition home or self-care (01) | LOC: WOUND 05:25 | DX: L89.324 Pressure ulcer of left buttock, stage 4 (principal); G35 Multiple sclerosis; R77.0 Abnormality of albumin; I73.9 Peripheral vascular disease, unspecified; I87.2 Venous insufficiency (chronic) (peripheral); G81.04 Flaccid hemiplegia affecting left nondominant side; M62.82 Rhabdomyolysis ==

== ENCOUNTER → 2024-07-18 | Outpatient (CLI) | payer OTHER ==
[2024-07-19 14:47] LABS: Stool Occult Bld Immuno 1 Negative (NEGATIVE)
== END ==
LOC: LAB SHORT 12:00 → LAB 12:00
PROVIDERS: Physician Assistant
DX: Z12.11 Encounter for screening for malignant neoplasm of colon (principal)
CPT/HCPCS: G0328

== ENCOUNTER → 2025-02-15 | Outpatient (CLI) | payer OTHER ==
[2025-02-15 12:01] LABS: BASOPHILS ABSOLUTE AUTO 0.05 K/mm3 (0.00-0.23); BASOPHILS PERCENT AUTO 1 % (0-2); EOSINOPHILS ABSOLUTE AUTO 0.41 K/mm3 (0.00-0.68); EOSINOPHILS PERCENT AUTO 6 % (0-6); Hematocrit 39.9 % (33.0-51.0); Hemoglobin 12.9 g/dL (11.5-16.0); IMMATURE GRAN ABSOLUTE AUTO 0.01 K/mm3 (0.00-0.10); IMMATURE GRAN PERCENT AUTO 0 % (0-1); LYMPHOCYTES ABSOLUTE AUTO 1.86 K/mm3 (0.84-5.20); LYMPHOCYTES PERCENT AUTO 27 % (21-46); MONOCYTES ABSOLUTE AUTO 0.77 K/mm3 (0.16-1.47); MONOCYTES PERCENT AUTO 11 % (4-13); Mean Corpuscular HGB 30.2 pg (26.0-34.0); Mean Corpuscular HGB Conc 32.3 g/dL (31.5-36.5); Mean Corpuscular Volume 93 fL (80-100); Mean Platelet Volume 10.2 fL (9.1-12.4); NEUTROPHILS ABSOLUTE AUTO 3.87 K/mm3 (1.96-9.15); NEUTROPHILS PERCENT AUTO 56 % (41-73); Platelet Count 219 K/mm3 (150-400); RDW Coefficient Variation 13.2 % (11.7-14.2); RDW Standard Deviation 45.4 fL (35.1-46.3); Red Blood Cell Count 4.27 M/mm3 (3.80-5.20); White Blood Cell Count 6.97 K/mm3 (4.00-11.30)
[2025-02-15 13:39] LABS: Alanine Aminotransfer (ALT/SGP 40 U/L (12-78); Albumin, Blood 2.8 g/dL (3.4-5.0); Albumin/Globulin Ratio 0.6 (0.8-1.8); Alk Phos 75 U/L (50-136); Anion Gap 9 mmol/L (3-11); Aspartate Aminotrans (AST/SGOT 48 U/L (12-37); Bilirubin, Total 0.4 mg/dL (0.1-1.0); Blood Urea Nitrogen 8 mg/dL (8-24); Bun/Creatinine Ratio 12.1 (12.0-20.0); CHOL/HDL RATIO 3.2; CO2, Blood 30 mmol/L (21-32); Calcium, Blood 8.7 mg/dL (8.5-10.1); Chloride, Blood 104 mmol/L (98-108); Cholesterol 144 mg/dL (50-200); Creatinine, Blood 0.66 mg/dL (0.40-1.00); Globulin, Blood 4.7 g/dL (2.2-4.0); Glomerular Filtration Rate 92 (60-); Glucose, Blood 114 mg/dL (70-99); HDL Cholesterol 45 mg/dL (>39); LDL/HDL RATIO 1.4; Low Density Lipoprotein Chol 63 mg/dL (0-110); Potassium, Blood 3.8 mmol/L (3.5-5.5); Sodium, Blood 139 mmol/L (136-145); Total Protein, Blood 7.5 g/dL (6.4-8.2); Triglycerides 181 mg/dL (30-160); Very Low Density Lipoprot Chol 36 mg/dL (6-32)
== END | disposition home or self-care (01) ==
LOC: LAB 10:49 → LAB SHORT 10:49
PROVIDERS: Physician Assistant
DX: G35 Multiple sclerosis (principal); I10 Essential (primary) hypertension; E44.1 Mild protein-calorie malnutrition; I87.2 Venous insufficiency (chronic) (peripheral); R73.01 Impaired fasting glucose
CPT/HCPCS: 80053; 80061; 83036; 85025

== ENCOUNTER 2025-03-14 06:34 | Emergency (ER) | payer OTHER ==
[~2025-03-14] VITALS: Ht 170.2 cm; Wt 119.3 kg
[2025-03-14] MEDS ORDERED: CefTRIAXone Sodium 1,000 MG in NS 100 ML IV ONE ×2 (07:00→08:40)
[2025-03-14] MEDS ORDERED: NS 1,000 ML BAG IR SCH (07:20)
[2025-03-14 07:23] LABS: BASOPHILS ABSOLUTE AUTO 0.04 K/mm3 (0.00-0.23); BASOPHILS PERCENT AUTO 1 % (0-2); EOSINOPHILS ABSOLUTE AUTO 0.26 K/mm3 (0.00-0.68); EOSINOPHILS PERCENT AUTO 5 % (0-6); Hematocrit 44.9 % (33.0-51.0); Hemoglobin 14.5 g/dL (11.5-16.0); IMMATURE GRAN ABSOLUTE AUTO 0.01 K/mm3 (0.00-0.10); IMMATURE GRAN PERCENT AUTO 0 % (0-1); LYMPHOCYTES ABSOLUTE AUTO 1.58 K/mm3 (0.84-5.20); LYMPHOCYTES PERCENT AUTO 27 % (21-46); MONOCYTES ABSOLUTE AUTO 0.56 K/mm3 (0.16-1.47); MONOCYTES PERCENT AUTO 10 % (4-13); Mean Corpuscular HGB 29.5 pg (26.0-34.0); Mean Corpuscular HGB Conc 32.3 g/dL (31.5-36.5); Mean Corpuscular Volume 91 fL (80-100); Mean Platelet Volume 9.5 fL (9.1-12.4); NEUTROPHILS ABSOLUTE AUTO 3.34 K/mm3 (1.96-9.15); NEUTROPHILS PERCENT AUTO 58 % (41-73); Platelet Count 216 K/mm3 (150-400); RDW Coefficient Variation 13.1 % (11.7-14.2); RDW Standard Deviation 44.1 fL (35.1-46.3); Red Blood Cell Count 4.91 M/mm3 (3.80-5.20); White Blood Cell Count 5.79 K/mm3 (4.00-11.30)
[2025-03-14 07:39] LABS: Albumin, Blood 3.2 g/dL (3.4-5.0); Albumin/Globulin Ratio 0.6 (0.8-1.8); Bilirubin, Total 0.4 mg/dL (0.1-1.0); Bun/Creatinine Ratio 15.2 (12.0-20.0); Calcium, Blood 9.1 mg/dL (8.5-10.1); Creatinine, Blood 0.59 mg/dL (0.40-1.00); Globulin, Blood 5.3 g/dL (2.2-4.0); Potassium, Blood 3.3 mmol/L (3.5-5.5); Total Protein, Blood 8.5 g/dL (6.4-8.2)
[2025-03-14 07:47] LABS: Source, Urine Foley catheter
[2025-03-14 07:52] LABS: Appearance, Urine Clear (Clear); Bilirubin, Urine Neg (Neg); Blood, Urine 5+ (Neg); Color, Urine Yellow (P-Yellow); Glucose Qualitative, Urine Neg (Neg); Ketones, Urine Neg (Neg); Leukocyte Esterase, Urine 3+ (Neg); Nitrite, Urine Neg (Neg); Protein, Urine Neg (Neg); Urobilinogen, Urine NORM (Normal); pH, Urine 6.5 (5.0-8.0)
[2025-03-14] MEDS ORDERED: Potassium Chloride 20 MEQ TabCR PO ONE (08:00)
[2025-03-14 08:03] LABS: Bacteria Many /hpf; Squamous Epithelial Cells Not Seen /hpf (Few)
[2025-03-14] MEDS ORDERED: CEFP200 PO (08:30)
[2025-03-14] MEDS ORDERED: VISBIOME 112.51 EACH PO (08:30)
[2025-03-14 10:45] VITALS: BP 143/64
== END 2025-03-14 11:31 | disposition home or self-care (01) ==
LOC: ER 06:34
PROVIDERS: Student in an Organized Health Care Education/Training Program
DX: N39.0 Urinary tract infection, site not specified (principal); G35 Multiple sclerosis; N31.9 Neuromuscular dysfunction of bladder, unspecified; Z96.0 Presence of urogenital implants; Z74.01 Bed confinement status
CPT/HCPCS: 51702; 80053; 81001; 85025; 87077; 87086; 87186; 96365; 99283-25; A9270; J0696; J7030

== ENCOUNTER → 2025-06-01 | Outpatient (CLI) | payer OTHER ==
[~2025-06-01] MED LIST changes: +CEFP200 PO
[2025-06-01 13:29] LABS: Source, Urine Straight Cath
[2025-06-01 14:16] LABS: Bilirubin, Urine Neg (Neg); Color, Urine Yellow (P-Yellow); Glucose Qualitative, Urine Neg (Neg); Ketones, Urine Neg (Neg); Leukocyte Esterase, Urine 3+ (Neg); Protein, Urine 3+ (Neg); Specific Gravity, Urine 1.015 (1.003-1.022); Urobilinogen, Urine 2+ (Normal)
[2025-06-01 14:23] LABS: Alanine Aminotransfer (ALT/SGP 26.0 U/L (12-78); Albumin, Blood 2.9 g/dL (3.4-5.0); Albumin/Globulin Ratio 0.6 (0.8-1.8); Anion Gap 9.0 mmol/L (3-11); Aspartate Aminotrans (AST/SGOT 21.0 U/L (12-37); Bilirubin, Total 0.3 mg/dL (0.1-1.0); Blood Urea Nitrogen 10.0 mg/dL (8-24); CO2, Blood 30.0 mmol/L (21-32); Calcium, Blood 8.8 mg/dL (8.5-10.1); Chloride, Blood 105.0 mmol/L (98-108); Creatinine, Blood 0.6 mg/dL (0.40-1.00); Globulin, Blood 4.9 g/dL (2.2-4.0); Glucose, Blood 95.0 mg/dL (70-99); Potassium, Blood 3.5 mmol/L (3.5-5.5); Sodium, Blood 140.0 mmol/L (136-145); Total Protein, Blood 7.8 g/dL (6.4-8.2)
[2025-06-01 14:47] LABS: Red Blood Cells, Urine 25-50 /hpf (0-2); White Blood Cells, Urine TNTC /hpf (0-5)
== END ==
LOC: LAB SHORT 13:26 → LAB 13:26
PROVIDERS: Physician Assistant
DX: N39.0 Urinary tract infection, site not specified (principal); G35 Multiple sclerosis; I10 Essential (primary) hypertension; F41.1 Generalized anxiety disorder
CPT/HCPCS: 80053; 81001; 87077; 87086; 87186

== ENCOUNTER → 2025-06-19 | Outpatient (CLI) | payer OTHER ==
[2025-06-19 18:02] LABS: BASOPHILS ABSOLUTE AUTO 0.05 K/mm3 (0.00-0.23); BASOPHILS PERCENT AUTO 1 % (0-2); EOSINOPHILS ABSOLUTE AUTO 0.32 K/mm3 (0.00-0.68); EOSINOPHILS PERCENT AUTO 4 % (0-6); Hematocrit 43.1 % (33.0-51.0); Hemoglobin 13.9 g/dL (11.5-16.0); IMMATURE GRAN ABSOLUTE AUTO 0.04 K/mm3 (0.00-0.10); IMMATURE GRAN PERCENT AUTO 1 % (0-1); LYMPHOCYTES ABSOLUTE AUTO 1.85 K/mm3 (0.84-5.20); LYMPHOCYTES PERCENT AUTO 22 % (21-46); MONOCYTES ABSOLUTE AUTO 0.99 K/mm3 (0.16-1.47); MONOCYTES PERCENT AUTO 12 % (4-13); Mean Corpuscular HGB Conc 32.3 g/dL (31.5-36.5); Mean Corpuscular Volume 94 fL (80-100); NEUTROPHILS ABSOLUTE AUTO 5.03 K/mm3 (1.96-9.15); NEUTROPHILS PERCENT AUTO 61 % (41-73); NRBC ABSOLUTE 0.00 K/mm3 (0.00-0.02); NRBC Auto 0.0 /100 WBC (0.0-0.2); Platelet Count 302 K/mm3 (150-400); RDW Coefficient Variation 13.0 % (11.7-14.2); RDW Standard Deviation 44.6 fL (35.1-46.3)
[2025-06-19 19:07] LABS: Alanine Aminotransfer (ALT/SGP 20.0 U/L (12-78); Albumin, Blood 2.7 g/dL (3.4-5.0); Albumin/Globulin Ratio 0.5 (0.8-1.8); Anion Gap 9.0 mmol/L (3-11); Aspartate Aminotrans (AST/SGOT 31.0 U/L (12-37); Bilirubin, Total 0.3 mg/dL (0.1-1.0); Blood Urea Nitrogen 8.0 mg/dL (8-24); CO2, Blood 30.0 mmol/L (21-32); Calcium, Blood 9.2 mg/dL (8.5-10.1); Chloride, Blood 101.0 mmol/L (98-108); Creatinine, Blood 0.47 mg/dL (0.40-1.00); Globulin, Blood 5.6 g/dL (2.2-4.0); Glucose, Blood 109.0 mg/dL (70-99); Potassium, Blood 3.8 mmol/L (3.5-5.5); Sodium, Blood 136.0 mmol/L (136-145); Total Protein, Blood 8.3 g/dL (6.4-8.2)
== END ==
LOC: LAB 15:05 → LAB SHORT 15:05
PROVIDERS: Physician Assistant
DX: N39.0 Urinary tract infection, site not specified (principal); G35 Multiple sclerosis; E66.01 Morbid (severe) obesity due to excess calories; N31.9 Neuromuscular dysfunction of bladder, unspecified
CPT/HCPCS: 80053; 85025

== ENCOUNTER → 2025-07-27 | Outpatient (CLI) | payer OTHER ==
[2025-07-27 10:51] LABS: Bilirubin, Urine Neg (Neg); Color, Urine Yellow (P-Yellow); Glucose Qualitative, Urine Neg (Neg); Ketones, Urine Neg (Neg); Leukocyte Esterase, Urine 3+ (Neg); Protein, Urine 2+ (Neg); Specific Gravity, Urine 1.015 (1.003-1.022); Urobilinogen, Urine 1+ (Normal)
[2025-07-27 10:52] LABS: Hematocrit 41.5 % (33.0-51.0); Hemoglobin 13.2 g/dL (11.5-16.0); Mean Corpuscular HGB Conc 31.8 g/dL (31.5-36.5); Mean Corpuscular Volume 94 fL (80-100); NRBC ABSOLUTE 0.00 K/mm3 (0.00-0.02); NRBC Auto 0.0 /100 WBC (0.0-0.2); Platelet Count 196 K/mm3 (150-400); RDW Coefficient Variation 13.1 % (11.7-14.2); RDW Standard Deviation 44.8 fL (35.1-46.3)
[2025-07-27 11:02] LABS: White Blood Cells, Urine 50-100 /hpf (0-5)
[2025-07-27 11:40] LABS: Anion Gap 9.0 mmol/L (3-11); Blood Urea Nitrogen 10.0 mg/dL (8-24); CO2, Blood 28.0 mmol/L (21-32); Calcium, Blood 9.0 mg/dL (8.5-10.1); Chloride, Blood 104.0 mmol/L (98-108); Creatinine, Blood 0.58 mg/dL (0.40-1.00); Glucose, Blood 111.0 mg/dL (70-99); Potassium, Blood 4.3 mmol/L (3.5-5.5); Sodium, Blood 137.0 mmol/L (136-145)
== END | disposition home or self-care (01) ==
LOC: LAB 10:12 → LAB SHORT 10:12
PROVIDERS: Urology
DX: Z01.812 Encounter for preprocedural laboratory examination (principal); N39.0 Urinary tract infection, site not specified
CPT/HCPCS: 80048; 81001; 85027; 87086

== ENCOUNTER 2025-08-01 09:13 | Day surgery (SDC) | payer OTHER ==
[~2025-08-01] VITALS: Ht 170.2 cm; Wt 117.3 kg
[2025-08-01] MEDS ORDERED: CefOXitin 2000 mg Vial ONE (09:17)
[2025-08-01] MEDS ORDERED: AMLO10 (09:41)
[2025-08-01] MEDS ORDERED: METHENAMINE MAND1 GM PO (09:44)
[2025-08-01] MEDS ORDERED: ZYRTEC10 M2 PO (09:44)
[2025-08-01] MEDS ORDERED: Lidocaine 2% Jelly Uro-Jet ONE (10:24)
[2025-08-01] MEDS ORDERED: Bupivacaine 0.5% W/EPI 1:200000 SDV 30 ML Vial ONE (10:24)
[2025-08-01] MEDS ORDERED: FentaNYL Citrate 50 MCG/ML 2 ML Injection ONE (10:34)
--- NOTE | 2025-08-01 11:13 | NUR ---
08/01/25 1113 Carri Chapman MCDONOUGH CATHETER DC'D AT BEGINNING OF CASE.
[2025-08-01] MEDS ORDERED: Ondansetron HCl 2 MG / ML 2ML Vial ONE (11:24)
[2025-08-01] MEDS ORDERED: Metoclopramide HCl 5MG / ML 2ML Vial ONE (11:24)
[2025-08-01] MEDS ORDERED: Sugammadex Sodium 200 MG/2ML SDV (100 MG/ML) ONE (11:25)
--- NOTE | 2025-08-01 11:58 | NUR ---
08/01/25 1158 IVÁN CORTÉS PT COMES TO PACU WIDE AWAKE AND TALKING. PT DOING VERY WELL
[2025-08-01 12:11] VITALS: BP 149/70
--- NOTE | 2025-08-01 12:54 | NUR ---
08/01/25 1254 IVÁN CORTÉS IV REMOVED BY PATRICIO BARILLAS LIFT USED FROM BED TO PT MOTORIZED WC- NURSES PARMINDER
== END 2025-08-01 12:50 | disposition home or self-care (01) ==
LOC: ORSCSDS 09:13
PROVIDERS: Urology
PROC: 0T9B30Z Drainage of Bladder with Drainage Device, Percutaneous Approach (ICD-10-PCS; principal; 2025-08-01 10:30)
DX: T83.511A Infection and inflammatory reaction due to indwelling urethral catheter, initial encounter (principal); G35 Multiple sclerosis; N30.20 Other chronic cystitis without hematuria; R33.8 Other retention of urine; Z99.3 Dependence on wheelchair; I10 Essential (primary) hypertension; E66.9 Obesity, unspecified; Z68.41 Body mass index [BMI] 40.0-44.9, adult; Z79.899 Other long term (current) drug therapy
CPT/HCPCS: A4346; C1769; J0694; J2405; J2704; J2765; J3010; J7120

== ENCOUNTER → 2025-11-22 | Outpatient (CLI) | payer OTHER ==
[~2025-11-22] MED LIST changes: +AMLO10; +METHENAMINE MAND1 GM PO; +ZYRTEC10 M2 PO
[2025-11-22 11:18] LABS: Source, Urine Straight Cath
[2025-11-22 11:23] LABS: Bilirubin, Urine Neg (Neg); Color, Urine Yellow (P-Yellow); Glucose Qualitative, Urine Neg (Neg); Ketones, Urine 1+ (Neg); Leukocyte Esterase, Urine 3+ (Neg); Protein, Urine 3+ (Neg); Specific Gravity, Urine 1.010 (1.003-1.022); Urobilinogen, Urine NORM (Normal)
[2025-11-22 11:33] LABS: Red Blood Cells, Urine 25-50 /hpf (0-2); White Blood Cells, Urine 50-100 /hpf (0-5)
== END | disposition home or self-care (01) ==
LOC: LAB 11:14 → LAB SHORT 11:14
PROVIDERS: Urology
DX: R30.0 Dysuria (principal)
CPT/HCPCS: 81001; 87086